=== PATIENT | female | born 1955 | race Caucasian/White ===

== ENCOUNTER 2017-10-27 07:21 | Outpatient (CLI) | payer OTHER ==
[~2017-10-27 07:21] MED LIST: DOCU100C40 PO; LACT10SO32 PO; MAG30ORA PO; METO5VIA IV; POLY17PO2 PO; SUMA6VIA19 SQ
[2017-10-27 07:51] LABS: BASOPHILS % (AUTO) 0.6 % (0-1); EOSINOPHILS # (AUTO) 0.1 X10'3 (0-0.9); EOSINOPHILS % (AUTO) 2.1 % (0-6); HEMATOCRIT 45.1 % (35.0-45.0); HEMOGLOBIN 15.5 g/dl (12.0-16.0); LYMPHOCYTES # (AUTO) 1.6 X10'3 (1.1-4.8); LYMPHOCYTES % (AUTO) 27.2 % (21-51); MEAN CORPUSCULAR HGB CONC 34.3 % (33.0-36.5); MEAN CORPUSCULAR VOLUME 90.5 FL (78-98); MONOCYTES # (AUTO) 0.6 X10'3 (0-0.9); MONOCYTES % (AUTO) 9.4 % (2-12); NEUTROPHILS # (AUTO) 3.7 X10'3 (1.8-7.7); NEUTROPHILS % (AUTO) 60.7 % (42-75); PLATELET COUNT 291 X10'3 (140-440); RED BLOOD COUNT 4.98 X10'6 (4.20-5.60); WHITE BLOOD COUNT 6.1 X10'3 (4.5-11.0)
[2017-10-27 08:19] LABS: ALANINE AMINOTRANSFERASE 17 U/L (12-78); ALBUMIN 3.9 G/DL (3.4-5.0); ALKALINE PHOSPHATASE 101 IU/L (46-116); ANION GAP 9 (8-16); ASPARTATE AMINO TRANSFERASE 14 U/L (10-37); BILIRUBIN,TOTAL 0.4 MG/DL (0.1-1.0); BLOOD UREA NITROGEN 19 MG/DL (7-18); CALCIUM 9.1 MG/DL (8.5-10.1); CHLORIDE 105 MMOL/L (99-107); CHOLESTEROL 209 MG/DL (0-200); CREATININE 0.73 MG/DL (0.40-0.90); GLUCOSE 109 MG/DL (70-104); HDL CHOLESTEROL 70 MG/DL (35-60); LDL CHOLESTEROL 122 MG/DL (50-100); POTASSIUM 3.9 MMOL/L (3.5-5.1); SODIUM 143 MMOL/L (135-145); TOTAL CARBON DIOXIDE 29.1 MMOL/L (24-32); TOTAL PROTEIN 7.8 G/DL (6.4-8.2); TRIGLYCERIDES 70 MG/DL (20-135); eGFR 81 ML/MIN
[2017-10-27 08:23] LABS: CLARITY,URINE CLOUDY (Clear); COLOR,URINE YELLOW (Yellow); GLUCOSE, URINE NEGATIVE (Neg); KETONES,URINE NEGATIVE (Neg); LEUKOCYTE ESTERASE ,URINE SMALL (Neg); NITRITES, URINE NEGATIVE (Neg); OCCULT BLOOD,URINE MODERATE (Neg); PH,URINE 7.5 (4.8-8.0); PROTEIN,URINE NEGATIVE (Neg); UROBILINOGEN,URINE 0.2 E.U/dL (0.2-1.0)
[2017-10-27 08:37] LABS: UA COLLECTION TYPE CLN CATCH MIDSTREAM
[2017-10-27 08:40] LABS: AMORPHOUS PHOSPHATES 2+; BACTERIA,URINE NONE SEEN /HPF (Neg); MUCUS STRANDS MANY /LPF (Neg); RBC,URINE 0-2 /HPF (0-2); SQUAMOUS EPITHELIAL CELL,UR FEW /LPF (FEW); WBC,URINE 0-4 /HPF (0-4)
[2017-10-27 08:41] LABS: HYALINE CASTS 0-3 /LPF (NEGATIVE)
== END 2017-10-27 23:59 | disposition home or self-care (01) ==
LOC: LAB 07:21
PROVIDERS: ATTEND Family Medicine
DX: Z00.01 Encounter for general adult medical examination with abnormal findings (principal); R79.89 Other specified abnormal findings of blood chemistry
CPT/HCPCS: 36415; 80053; 80061; 81001; 83001; 84439; 84443; 85025

== ENCOUNTER 2018-12-11 06:05 | Day surgery (SDC) | payer OTHER ==
[2018-12-08 14:37] LABS: CLARITY,URINE SLIGHTLY CLOUDY (Clear); COLOR,URINE STRAW (Yellow); GLUCOSE, URINE NEGATIVE (Neg); KETONES,URINE TRACE mg/dl (Neg); LEUKOCYTE ESTERASE ,URINE NEGATIVE (Neg); NITRITES, URINE NEGATIVE (Neg); OCCULT BLOOD,URINE SMALL (Neg); PROTEIN,URINE NEGATIVE (Neg); UROBILINOGEN,URINE 0.2 E.U/dL (0.2-1.0)
[2018-12-08 14:38] LABS: BASOPHILS # (AUTO) 0.1 X10'3 (0-0.2); BASOPHILS % (AUTO) 0.9 % (0-1); EOSINOPHILS % (AUTO) 0.6 % (0-6); LYMPHOCYTES # (AUTO) 1.8 X10'3 (1.1-4.8); LYMPHOCYTES % (AUTO) 25.7 % (21-51); MEAN CORPUSCULAR HGB CONC 33.2 g/dL (33.0-36.5); MEAN CORPUSCULAR VOLUME 93.3 FL (78-98); MEAN PLATELET VOLUME 8.2 FL (7.4-10.4); MONOCYTES # (AUTO) 0.5 X10'3 (0-0.9); MONOCYTES % (AUTO) 7.9 % (2-12); NEUTROPHILS # (AUTO) 4.4 X10'3 (1.8-7.7); NEUTROPHILS % (AUTO) 64.9 % (42-75); PRE OP HEMATOCRIT 43.3 % (35.0-45.0); PRE OP HEMOGLOBIN 14.4 g/dL (12.0-16.0); PRE OP PLATELET COUNT 272 X10'3 (140-440); RED BLOOD COUNT 4.64 X10'6 (4.20-5.60); RED CELL DISTRIBUTION WIDTH 13.4 % (11.5-14.5)
[2018-12-08 14:45] LABS: UA COLLECTION TYPE NON-SPECIFIED
[2018-12-08 14:50] LABS: BACTERIA,URINE FEW /HPF (Neg); MUCUS STRANDS MANY /LPF (Neg); SQUAMOUS EPITHELIAL CELL,UR FEW /LPF (FEW); WBC,URINE 0-4 /HPF (0-4)
[2018-12-08 14:51] LABS: ALBUMIN 3.7 G/DL (3.4-5.0); ALKALINE PHOSPHATASE 84 IU/L (46-116); BLOOD UREA NITROGEN 20 MG/DL (7-18); BUN/CREATININE RATIO 24.7 (6.6-38.0); CALCIUM 8.4 MG/DL (8.5-10.1); CHLORIDE 108 MMOL/L (99-107); CREATININE 0.81 MG/DL (0.40-0.90); PRE OP ALT 18 U/L (30-65); PRE OP ANION GAP 9 (8-16); PRE OP AST 10 U/L (10-37); PRE OP BILIRUB, TOTAL 0.4 MG/DL (0.0-1.0); PRE OP GLUCOSE 156 MG/DL (70-104); PRE OP PROTIME 10.4 SECONDS (9.0-12.0); PRE OP SODIUM 141 MMOL/L (135-145); TOTAL CARBON DIOXIDE 23.7 MMOL/L (24-32); TOTAL PROTEIN 7.3 G/DL (6.4-8.2); eGFR 71 ML/MIN
[2018-12-08 14:51] LABS: COARSE GRANULAR CAST 0-3 /LPF (NEGATIVE); HYALINE CASTS 0-3 /LPF (NEGATIVE); TRANSITIONAL EPI CELLS,URINE FEW /HPF
[2018-12-08 14:53] LABS: PRE OP POTASSIUM 2.9 MMOL/L (3.4-5.1)
[2018-12-08 16:49] LABS: HEMOGLOBIN A1C 5.7 % (4.5-6.2)
[2018-12-11] VITALS (17 sets, daily range): BP systolic 78–132; BP diastolic 44–67
[~2018-12-11] VITALS: Ht 163.8 cm; Wt 59.0 kg
[~2018-12-11 06:05] MED LIST changes: +CHOL10002 PO; -DOCU100C40 PO; +ESTR42.53 VG; +GENTAMICIN IV ONE; -LACT10SO32 PO; -MAG30ORA PO; -METO5VIA IV; +MULT-933 PO; +NORMAL SALINE IV ONE; -POLY17PO2 PO; +TOP100T PO; +clindamycin-Cleocin 900mg/D5W 50 ML IV ONE; +famotidine 20mg tablet PO ONE
[2018-12-11] MEDS ORDERED: LIDOcaine 1% (10mg/ml) 2ml vial ONE (06:26)
[2018-12-11] MEDS: ringers solution, lacted 1,000 ML IV SCH ×2 (06:31→21:10)
[2018-12-11] MEDS ORDERED: clindamycin phosphate 40gm vag cream ONE (06:37)
[2018-12-11] MEDS ORDERED: morphine 10mg/ml inj. ONE (06:38)
[2018-12-11] MEDS ORDERED: LIDOcaine 1% 30ml preserv. free vial ONE (06:38)
[2018-12-11] MEDS ORDERED: BUPIVAcaine/PF 2.5 mg/ml (0.25%) 30ml vial ONE (06:38)
[2018-12-11] MEDS ORDERED: vasoPRESSIN 20 units/ml inj. ONE (06:38)
[2018-12-11] MEDS ORDERED: ceFAZolin 1000mg inj ONE (06:38)
[2018-12-11] MEDS ORDERED: midazolam 2 mg/2 ml injection ONE ×2 (07:47→08:02)
[2018-12-11] MEDS ORDERED: rocuronium 10mg/ml inj IV ONE (08:02)
[2018-12-11] MEDS ORDERED: fentaNYL /PF 50mcg/ml 5ml ampule ONE (08:02)
[2018-12-11] MEDS ORDERED: propofol inj 20 ML IV ONE (08:02)
[2018-12-11] MEDS ORDERED: ringers solution, lacted 1,000 ML IV SCH ×2 (08:07→11:00)
[2018-12-11] MEDS ORDERED: meperidine/PF 25mg/ml syringe IV PRN ×3 (08:10)
[2018-12-11] MEDS ORDERED: ondansetron/PF 4mg/2ml inj IV PRN ×2 (08:10→11:00)
[2018-12-11] MEDS ORDERED: proCHLORperazine 10 MG/2 ml inj IV PRN (08:10)
[2018-12-11] MEDS ORDERED: morphine 4 MG/ML inj SYRINge IV PRN ×2 (08:10)
[2018-12-11] MEDS ORDERED: sevoflurane 250ml liquid IH ONE (08:11)
[2018-12-11] MEDS ORDERED: naloxone 0.4 mg/ml inj IV PRN (11:00)
[2018-12-11] MEDS ORDERED: temazepam 15mg capsule PO PRN (11:00)
[2018-12-11] MEDS ORDERED: CADD PCA waste documentation MC PRN (11:00)
[2018-12-11] MEDS ORDERED: HYDROcodone/acetaminophen 5mg/325mg tablet PO PRN ×2 (11:00)
[2018-12-11] MEDS ORDERED: diphenhydrAMINE 50 mg/ml inj IV PRN (11:00)
[2018-12-11] MEDS ORDERED: normal saline 500ml IV soln 500 ML IV PRN (11:00)
[2018-12-11] MEDS ORDERED: magnesium hydroxide 30ml (MOM) UD suspension PO PRN (11:00)
[2018-12-11] MEDS ORDERED: fluoroscein sod 10% (100mg/ml) 5ml vial ONE (11:06)
[2018-12-11] MEDS ORDERED: dexamethasone sod phosphate 4mg/ml inj. ONE (11:07)
[2018-12-11] MEDS ORDERED: glycopyrrolate 0.2mg/ml inj ONE (11:07)
[2018-12-11] MEDS ORDERED: ondansetron/PF 4mg/2ml inj ONE (11:07)
[2018-12-11] MEDS ORDERED: acetaminophen 1,000mg/100ml IV 100 ML IV ONE (11:07)
[2018-12-11] MEDS ORDERED: neostigmine methylsulfate 1 MG/ML 10ml vial ONE (11:07)
[2018-12-11] MEDS: HYDROmorphone/NS 1 mg/ml CADD 50 ML IV SCH ×7 (11:33→23:00)
--- NOTE | 2018-12-11 12:00 | NUR ---
Report received from [employer] SUPPORT FITTERBrandi.
--- NOTE | 2018-12-11 12:15 | NUR ---
Discharge criteria met, report to receiving floor. Transferred to room in stable condition.
[2018-12-11] MEDS: ketorolac trometh. 30mg/ml inj. IV PRN ×2 (13:16→21:08)
--- NOTE | 2018-12-11 18:45 | NUR ---
Problems reprioritized. Patient report given, questions answered & plan of care reviewed with PAYTON Ross.
[2018-12-12] VITALS: BP 108/62
[2018-12-12] MEDS: HYDROmorphone/NS 1 mg/ml CADD 50 ML IV SCH ×6 (01:00→11:00)
[2018-12-12] MEDS ORDERED: SUMAtriptan 25 MG tablet PO PRN (01:45)
[2018-12-12 04:00] VITALS: BP 128/58
[2018-12-12 04:37] LABS: BASOPHILS % (AUTO) 0.4 % (0-1); EOSINOPHILS % (AUTO) 0.2 % (0-6); HEMATOCRIT 38.7 % (35.0-45.0); HEMOGLOBIN 12.7 g/dl (12.0-16.0); LYMPHOCYTES # (AUTO) 2.2 X10'3 (1.1-4.8); LYMPHOCYTES % (AUTO) 19.9 % (21-51); MEAN PLATELET VOLUME 8.3 FL (7.4-10.4); MONOCYTES % (AUTO) 8.9 % (2-12); NEUTROPHILS # (AUTO) 7.9 X10'3 (1.8-7.7); NEUTROPHILS % (AUTO) 70.6 % (42-75); PLATELET COUNT 243 X10'3 (140-440); RED BLOOD COUNT 4.11 X10'6 (4.20-5.60); RED CELL DISTRIBUTION WIDTH 13.3 % (11.5-14.5); WHITE BLOOD COUNT 11.2 X10'3 (4.5-11.0)
[2018-12-12] MEDS ORDERED: metoclopramide 5 mg/ml inj IV PRN (04:40)
--- NOTE | 2018-12-12 06:15 | NUR ---
Problems reprioritized. Patient report given, questions answered & plan of care reviewed with Diana CAIN.
--- NOTE | 2018-12-12 06:51 | NUR ---
Patient in room TRAN 341. I have received report from Cody CAIN and had the opportunity to ask questions and assume patient care.
[2018-12-12 07:00] VITALS: BP 121/69
[2018-12-12] MEDS ORDERED: acetaminophen 1,000mg/100ml IV 100 ML IV ONE (08:30)
--- NOTE | 2018-12-12 09:16 | NUR ---
patient sen by Dr Kc, acetaminophen drip ordered and administered for chronic headache. will continue to monitor.
[2018-12-12 11:00] VITALS: BP 131/65
--- NOTE | 2018-12-12 17:32 | NUR ---
patient stated that the tylenol helped her headache. Ambulating frequently with . Voiding often. Seen by Dr Morrow is for discharge. Dc home in stable condition with 1700hrs.
== END 2018-12-12 17:25 | disposition home or self-care (01) ==
LOC: PAS 06:05 → SUR 3N 11:00 → PAS 12-12 17:25
PROVIDERS: ATTEND Specialist
DX: N81.4 Uterovaginal prolapse, unspecified (principal); N36.42 Intrinsic sphincter deficiency (ISD); N73.6 Female pelvic peritoneal adhesions (postinfective); D25.9 Leiomyoma of uterus, unspecified; N39.3 Stress incontinence (female) (male); G43.909 Migraine, unspecified, not intractable, without status migrainosus; M19.90 Unspecified osteoarthritis, unspecified site; Z98.890 Other specified postprocedural states; Z79.899 Other long term (current) drug therapy; Z72.89 Other problems related to lifestyle; Z88.0 Allergy status to penicillin; Z90.49 Acquired absence of other specified parts of digestive tract
CPT/HCPCS: 36415; 57240; 57283; 57288; 58552; 80053; 81001; 82948; 83036; 84132; 85025; 85610; 85730; 86885; 86900; 86901; C1771; J0131; J0690; J1100; J1170; J1580; J1885; J2001; J2250; J2270; J2405; J2704; J2710; J2765; J3010; J3490; J7120; A4315; A4344; A4355; A6250; A7000; G0378

== ENCOUNTER 2019-06-19 05:08 | Outpatient (CLI) | payer OTHER ==
[~2019-06-19 05:08] MED LIST changes: -ESTR42.53 VG; -GENTAMICIN IV ONE; -NORMAL SALINE IV ONE; -clindamycin-Cleocin 900mg/D5W 50 ML IV ONE; -famotidine 20mg tablet PO ONE
[2019-06-19] MEDS ORDERED: iohexol 300mg/ml 100ml inj. ONE (08:56)
== END 2019-06-19 23:59 | disposition home or self-care (01) ==
LOC: 64 CT 05:08
PROVIDERS: ATTEND Obstetrics & Gynecology
DX: K44.9 Diaphragmatic hernia without obstruction or gangrene (principal); K57.90 Diverticulosis of intestine, part unspecified, without perforation or abscess without bleeding; N28.1 Cyst of kidney, acquired
CPT/HCPCS: 74177; Q9967

== ENCOUNTER 2020-01-31 11:33 | Day surgery (SDC) | payer BC ==
[2020-01-07 10:58] LABS: BASOPHILS % (AUTO) 0.7 % (0-1); EOSINOPHILS # (AUTO) 0.1 X10'3 (0-0.9); EOSINOPHILS % (AUTO) 1.1 % (0-6); LYMPHOCYTES # (AUTO) 1.4 X10'3 (1.1-4.8); LYMPHOCYTES % (AUTO) 29.4 % (21-51); MEAN CORPUSCULAR HEMOGLOBIN 31.3 PG (27.0-31.0); MEAN CORPUSCULAR HGB CONC 33.3 g/dL (33.0-36.5); MEAN CORPUSCULAR VOLUME 93.9 FL (78-98); MEAN PLATELET VOLUME 8.6 FL (7.4-10.4); MONOCYTES # (AUTO) 0.5 X10'3 (0-0.9); NEUTROPHILS # (AUTO) 2.9 X10'3 (1.8-7.7); NEUTROPHILS % (AUTO) 58.8 % (42-75); PRE OP HEMATOCRIT 42.9 % (35.0-45.0); PRE OP HEMOGLOBIN 14.3 g/dL (12.0-16.0); PRE OP PLATELET COUNT 251 X10'3 (140-440); RED BLOOD COUNT 4.57 X10'6 (4.20-5.60); RED CELL DISTRIBUTION WIDTH 13.2 % (11.5-14.5)
[2020-01-07 11:07] LABS: HCG SERUM QL NEGATIVE
[2020-01-07 11:12] LABS: ALBUMIN 3.7 G/DL (3.4-5.0); ALBUMIN/GLOBULIN RATIO 1.1 (1.1-1.5); ALKALINE PHOSPHATASE 79 IU/L (46-116); BLOOD UREA NITROGEN 25 MG/DL (7-18); BUN/CREATININE RATIO 27.2 (6.6-38.0); CALCIUM 8.8 MG/DL (8.5-10.1); CHLORIDE 108 MMOL/L (99-107); CREATININE 0.92 MG/DL (0.40-0.90); PRE OP ALT 16 U/L (30-65); PRE OP ANION GAP 8 (8-16); PRE OP AST 12 U/L (10-37); PRE OP BILIRUB, TOTAL 0.3 MG/DL (0.0-1.0); PRE OP GLUCOSE 94 MG/DL (70-104); PRE OP POTASSIUM 3.7 MMOL/L (3.4-5.1); PRE OP PROTIME 10.3 SECONDS (9.0-12.0); PRE OP SODIUM 142 MMOL/L (135-145); TOTAL CARBON DIOXIDE 26.5 MMOL/L (24-32); TOTAL PROTEIN 7.2 G/DL (6.4-8.2); eGFR 61 ML/MIN
[2020-01-07 11:12] LABS: CLARITY,URINE TURBID (Clear); COLOR,URINE STRAW (Yellow); GLUCOSE, URINE NEGATIVE (Neg); KETONES,URINE NEGATIVE (Neg); LEUKOCYTE ESTERASE ,URINE NEGATIVE (Neg); NITRITES, URINE NEGATIVE (Neg); OCCULT BLOOD,URINE TRACE-INTACT (Neg); PH,URINE 7.5 (4.8-8.0); PROTEIN,URINE NEGATIVE (Neg); UROBILINOGEN,URINE 0.2 E.U/dL (0.2-1.0)
[2020-01-07 11:14] LABS: UA COLLECTION TYPE CLN CATCH MIDSTREAM
[2020-01-07 11:18] LABS: SQUAMOUS EPITHELIAL CELL,UR MANY /LPF (FEW)
[2020-01-07 11:19] LABS: AMORPHOUS PHOSPHATES 4+
[2020-01-07 11:21] LABS: MUCUS STRANDS MANY /LPF (Neg); TRANSITIONAL EPI CELLS,URINE FEW /HPF
[2020-01-07 11:22] LABS: BACTERIA,URINE 4+ /HPF (Neg); RBC,URINE 0-2 /HPF (0-2); WBC,URINE 0-4 /HPF (0-4)
[2020-01-24 10:12] LABS: BASOPHILS % (AUTO) 0.9 % (0-1); EOSINOPHILS # (AUTO) 0.1 X10'3 (0-0.9); EOSINOPHILS % (AUTO) 1.7 % (0-6); LYMPHOCYTES # (AUTO) 1.5 X10'3 (1.1-4.8); MEAN CORPUSCULAR HEMOGLOBIN 31.5 PG (27.0-31.0); MEAN CORPUSCULAR HGB CONC 33.8 g/dL (33.0-36.5); MEAN CORPUSCULAR VOLUME 93.3 FL (78-98); MEAN PLATELET VOLUME 8.6 FL (7.4-10.4); MONOCYTES # (AUTO) 0.5 X10'3 (0-0.9); MONOCYTES % (AUTO) 10.3 % (2-12); NEUTROPHILS # (AUTO) 2.9 X10'3 (1.8-7.7); NEUTROPHILS % (AUTO) 57.1 % (42-75); PRE OP HEMATOCRIT 43.6 % (35.0-45.0); PRE OP HEMOGLOBIN 14.7 g/dL (12.0-16.0); PRE OP PLATELET COUNT 244 X10'3 (140-440); RED BLOOD COUNT 4.68 X10'6 (4.20-5.60); RED CELL DISTRIBUTION WIDTH 13.1 % (11.5-14.5)
[2020-01-24 10:23] LABS: PRE OP PROTIME 10.1 SECONDS (9.0-12.0)
[2020-01-24 10:31] LABS: ALBUMIN 3.7 G/DL (3.4-5.0); ALBUMIN/GLOBULIN RATIO 1.1 (1.1-1.5); ALKALINE PHOSPHATASE 91 IU/L (46-116); BLOOD UREA NITROGEN 20 MG/DL (7-18); BUN/CREATININE RATIO 24.7 (6.6-38.0); CALCIUM 8.6 MG/DL (8.5-10.1); CHLORIDE 108 MMOL/L (99-107); CREATININE 0.81 MG/DL (0.40-0.90); PRE OP ALT 15 U/L (30-65); PRE OP ANION GAP 9 (8-16); PRE OP AST 12 U/L (10-37); PRE OP BILIRUB, TOTAL 0.3 MG/DL (0.0-1.0); PRE OP GLUCOSE 92 MG/DL (70-104); PRE OP POTASSIUM 3.8 MMOL/L (3.4-5.1); PRE OP SODIUM 142 MMOL/L (135-145); TOTAL CARBON DIOXIDE 24.8 MMOL/L (24-32); TOTAL PROTEIN 7.1 G/DL (6.4-8.2); eGFR 71 ML/MIN
[2020-01-31] VITALS (8 sets, daily range): BP systolic 107–131; BP diastolic 63–77
[~2020-01-31] VITALS: Ht 162.6 cm; Wt 62.1 kg
[~2020-01-31 11:33] MED LIST changes: +CALC500T63 PO; +GENTAMICIN IV ONE; +NORMAL SALINE IV ONE; +VANCOMYCIN INJ 1000 MG in NORMAL SALINE 250ml IV.SOLN IV ONE; +clindamycin-Cleocin 900mg/D5W 50 ML IV ONE; +famotidine 20mg tablet PO ONE; +gentamicin inj 300 MG in normal saline 100ml IV soln 92.5 ML IV ONE; +ringers solution, lacted 1,000 ML IV SCH
[2020-01-31] MEDS ORDERED: midazolam 2 mg/2 ml injection ONE (13:29)
[2020-01-31] MEDS ORDERED: BUPIVAcaine/PF 2.5 mg/ml (0.25%) 30ml vial ONE ×2 (13:29→13:30)
[2020-01-31] MEDS ORDERED: clindamycin phosphate 40gm vag cream ONE (13:29)
[2020-01-31] MEDS ORDERED: glycopyrrolate 0.2mg/ml inj ONE (13:42)
[2020-01-31] MEDS ORDERED: acetaminophen 1000 MG/100ml vial IV ONE (13:42)
[2020-01-31] MEDS ORDERED: neostigmine methylsulfate 1 MG/ML 10ml vial ONE (13:42)
[2020-01-31] MEDS ORDERED: sevoflurane 250ml liquid IH ONE (13:42)
[2020-01-31] MEDS ORDERED: propofol inj 20 ML IV ONE (13:50)
[2020-01-31] MEDS ORDERED: rocuronium 10mg/ml inj IV ONE (13:50)
[2020-01-31] MEDS ORDERED: fentaNYL/PF 50MCG/1 ML 2ML syringe ONE (13:50)
[2020-01-31] MEDS ORDERED: ringers solution, lacted 1,000 ML IV SCH (14:47)
[2020-01-31] MEDS ORDERED: morphine 2 MG/ML inj. syringe IV PRN (14:50)
[2020-01-31] MEDS ORDERED: proCHLORperazine 10 MG/2 ml inj IV PRN (14:50)
[2020-01-31] MEDS ORDERED: morphine 4 MG/ML inj SYRINge IV PRN (14:50)
[2020-01-31] MEDS ORDERED: meperidine/PF 25mg/ml syringe IV PRN ×3 (14:50)
[2020-01-31] MEDS ORDERED: ondansetron/PF 4mg/2ml inj IV PRN (14:50)
[2020-01-31] MEDS ORDERED: ondansetron/PF 4mg/2ml inj ONE (15:12)
[2020-01-31] MEDS ORDERED: dexamethasone sod phosphate 4mg/ml inj. ONE (15:13)
--- NOTE | 2020-01-31 15:34 | NUR ---
Received from OR via , accompanied by Anesthesiologist DR FULLER and report given by Anesthesiolgist. AWAKENS TO VOICE. VITALS STABLE. DRESSINGS DI. MOISE PAIN. ABD SOFT.
--- NOTE | 2020-01-31 16:44 | NUR ---
AWAKE AND ORIENTED. VITALS STABLE. DRESSING DI. MOISE PAIN. HOME WITH HER SPOUSE AT THIS TIME.
== END 2020-01-31 16:44 | disposition home or self-care (01) ==
LOC: PRE-OP 11:33
PROVIDERS: ATTEND Obstetrics & Gynecology
DX: N81.10 Cystocele, unspecified (principal); N73.6 Female pelvic peritoneal adhesions (postinfective); G43.909 Migraine, unspecified, not intractable, without status migrainosus; Z90.710 Acquired absence of both cervix and uterus; Z90.49 Acquired absence of other specified parts of digestive tract; Z20.828 Contact with and (suspected) exposure to other viral communicable diseases; Z79.899 Other long term (current) drug therapy; Z79.01 Long term (current) use of anticoagulants; Z88.0 Allergy status to penicillin; Z98.890 Other specified postprocedural states
CPT/HCPCS: 36415; 57240; 80053; 81001; 82948; 84703; 85025; 85610; 85730; 86885; 86900; 86901; 87635; 93005; C1758; J0131; J1100; J1580; J2250; J2405; J2704; J2710; J3010; J3370; J3490; J7120; U0003; A4618; A7000

== ENCOUNTER 2020-04-17 07:12 | Emergency (ER) | payer BC, MEDICARE ==
[~2020-04-17] VITALS: Ht 162.6 cm; Wt 61.0 kg
[~2020-04-17 07:12] MED LIST changes: -GENTAMICIN IV ONE; -NORMAL SALINE IV ONE; -VANCOMYCIN INJ 1000 MG in NORMAL SALINE 250ml IV.SOLN IV ONE; -clindamycin-Cleocin 900mg/D5W 50 ML IV ONE; -famotidine 20mg tablet PO ONE; -gentamicin inj 300 MG in normal saline 100ml IV soln 92.5 ML IV ONE; -ringers solution, lacted 1,000 ML IV SCH
[2020-04-17] MEDS ORDERED: ondansetron 4mg rapidly disintigrating tab PO ONE (07:30)
[2020-04-17] MEDS ORDERED: ketorolac trometh. 30mg/ml inj. IV ONE (07:30)
[2020-04-17] MEDS ORDERED: aspirin 325mg tablet PO ONE (07:30)
[2020-04-17] MEDS ORDERED: normal saline 1000ml 1,000 ML IV ONE (07:30)
[2020-04-17] MEDS ORDERED: iohexol 350MG/ML 100ml bottle IV ONE (08:03)
[2020-04-17] MEDS ORDERED: methylPREDNISolone sod succ 125mg/2ml vial IV ONE (08:10)
[2020-04-17] MEDS ORDERED: diphenhydrAMINE 50 mg/ml inj IV ONE (08:10)
[2020-04-17 08:20] LABS: BASOPHILS % (AUTO) 0.4 % (0-1); EOSINOPHILS # (AUTO) 0.1 X10'3 (0-0.9); EOSINOPHILS % (AUTO) 1.2 % (0-6); HEMATOCRIT 42.4 % (35.0-45.0); HEMOGLOBIN 14.2 g/dl (12.0-16.0); LYMPHOCYTES # (AUTO) 1.1 X10'3 (1.1-4.8); LYMPHOCYTES % (AUTO) 11.3 % (21-51); MEAN CORPUSCULAR HEMOGLOBIN 30.9 PG (27.0-31.0); MEAN CORPUSCULAR HGB CONC 33.4 g/dL (33.0-36.5); MEAN CORPUSCULAR VOLUME 92.5 FL (78-98); MEAN PLATELET VOLUME 7.6 FL (7.4-10.4); MONOCYTES # (AUTO) 0.8 X10'3 (0-0.9); MONOCYTES % (AUTO) 8.6 % (2-12); NEUTROPHILS # (AUTO) 7.4 X10'3 (1.8-7.7); NEUTROPHILS % (AUTO) 78.5 % (42-75); PLATELET COUNT 319 X10'3 (140-440); RED BLOOD COUNT 4.58 X10'6 (4.20-5.60); RED CELL DISTRIBUTION WIDTH 13.6 % (11.5-14.5); WHITE BLOOD COUNT 9.4 X10'3 (4.5-11.0)
[2020-04-17 08:44] LABS: ALANINE AMINOTRANSFERASE 18 U/L (12-78); ALBUMIN 3.4 G/DL (3.4-5.0); ALBUMIN/GLOBULIN RATIO 0.8 (1.1-1.5); ALKALINE PHOSPHATASE 101 IU/L (46-116); ANION GAP 9 (8-16); ASPARTATE AMINO TRANSFERASE 13 U/L (10-37); BILIRUBIN,TOTAL 0.4 MG/DL (0.1-1.0); BLOOD UREA NITROGEN 20 MG/DL (7-18); BUN/CREATININE RATIO 25.6 (6.6-38.0); CALCIUM 9.1 MG/DL (8.5-10.1); CHLORIDE 110 MMOL/L (99-107); CREATININE 0.78 MG/DL (0.40-0.90); GLUCOSE 119 MG/DL (70-104); POTASSIUM 3.7 MMOL/L (3.5-5.1); SODIUM 145 MMOL/L (135-145); TOTAL CARBON DIOXIDE 26.3 MMOL/L (24-32); TOTAL PROTEIN 7.8 G/DL (6.4-8.2); eGFR 74 ML/MIN
[2020-04-17 08:46] LABS: MAGNESIUM 2.2 MG/DL (1.5-2.4)
[2020-04-17 10:09] VITALS: BP 132/72
== END 2020-04-17 10:07 | disposition home or self-care (01) ==
LOC: ER 07:13 → EEVIPCON 07:13 → ER 10:07
DX: R07.89 Other chest pain (principal); R06.02 Shortness of breath; R11.0 Nausea; R50.9 Fever, unspecified; G43.909 Migraine, unspecified, not intractable, without status migrainosus; Z87.442 Personal history of urinary calculi; Z90.89 Acquired absence of other organs; Z98.890 Other specified postprocedural states; Z72.89 Other problems related to lifestyle; Z88.0 Allergy status to penicillin; Z88.8 Allergy status to other drugs, medicaments and biological substances; Z91.013 Allergy to seafood; Z79.899 Other long term (current) drug therapy
CPT/HCPCS: 36415; 71045; 71275; 80053; 83735; 83880; 84484; 85025; 93005; 96361; 96374; 96375; 99285; J1200; J1885; J2930; J7030; Q9967

== ENCOUNTER 2021-07-28 10:19 | Outpatient (CLI) | payer BC, MEDICARE ==
[~2021-07-28 10:19] MED LIST changes: +SUMA6VIA17 SQ; -SUMA6VIA19 SQ
[2021-07-28 13:37] LABS: BASOPHILS # (AUTO) 0.1 X10'3 (0-0.2); BASOPHILS % (AUTO) 0.9 % (0-1); EOSINOPHILS # (AUTO) 0.1 X10'3 (0-0.9); HEMATOCRIT 41.9 % (35.0-45.0); LYMPHOCYTES # (AUTO) 2.1 X10'3 (1.1-4.8); LYMPHOCYTES % (AUTO) 36.2 % (21-51); MEAN CORPUSCULAR HGB CONC 33.4 g/dL (33.0-36.5); MEAN CORPUSCULAR VOLUME 92.7 FL (78-98); MEAN PLATELET VOLUME 7.8 FL (7.4-10.4); MONOCYTES # (AUTO) 0.6 X10'3 (0-0.9); MONOCYTES % (AUTO) 10.7 % (2-12); NEUTROPHILS # (AUTO) 2.9 X10'3 (1.8-7.7); NEUTROPHILS % (AUTO) 50.2 % (42-75); PLATELET COUNT 279 X10'3 (140-440); RED BLOOD COUNT 4.52 X10'6 (4.20-5.60); RED CELL DISTRIBUTION WIDTH 12.9 % (11.5-14.5); WHITE BLOOD COUNT 5.7 X10'3 (4.5-11.0)
[2021-07-28 14:22] LABS: ALANINE AMINOTRANSFERASE 26 U/L (12-78); ALBUMIN 3.6 G/DL (3.4-5.0); ALBUMIN/GLOBULIN RATIO 1.2 (1.1-1.5); ALKALINE PHOSPHATASE 92 IU/L (46-116); ANION GAP 10 (8-16); ASPARTATE AMINO TRANSFERASE 21 U/L (10-37); BILIRUBIN,TOTAL 0.2 MG/DL (0.1-1.0); BLOOD UREA NITROGEN 22 MG/DL (7-18); BUN/CREATININE RATIO 28.9 (6.6-38.0); CALCIUM 8.4 MG/DL (8.5-10.1); CHLORIDE 102 MMOL/L (99-107); CREATININE 0.76 MG/DL (0.40-0.90); GLUCOSE 112 MG/DL (70-104); POTASSIUM 3.7 MMOL/L (3.5-5.1); SODIUM 141 MMOL/L (135-145); TOTAL CARBON DIOXIDE 29.3 MMOL/L (24-32); TOTAL PROTEIN 6.7 G/DL (6.4-8.2); eGFR 76 ML/MIN
== END 2021-07-28 23:59 | disposition home or self-care (01) ==
LOC: LAB 10:19
PROVIDERS: ATTEND Physician Assistant
DX: G43.909 Migraine, unspecified, not intractable, without status migrainosus (principal)
CPT/HCPCS: 36415; 80053; 84439; 84443; 85025

== ENCOUNTER 2021-10-15 12:38 | Inpatient (IN) | payer BC, MEDICARE ==
[~2021-10-15] VITALS: Ht 162.6 cm; Wt 66.0 kg
[2021-10-15] MEDS ORDERED: nitroGLYCERIN 0.4mg SUBLingual tab SL PRN ×2 (13:00→18:05)
[2021-10-15] MEDS ORDERED: aspirin 81mg tab.chew PO ONE (13:00)
[2021-10-15 13:12] LABS: BASOPHILS % (AUTO) 0.7 % (0-1); EOSINOPHILS # (AUTO) 0.2 X10'3 (0-0.9); EOSINOPHILS % (AUTO) 2.9 % (0-6); HEMATOCRIT 43.2 % (35.0-45.0); HEMOGLOBIN 14.3 g/dl (12.0-16.0); LYMPHOCYTES # (AUTO) 2.2 X10'3 (1.1-4.8); LYMPHOCYTES % (AUTO) 39.4 % (21-51); MEAN CORPUSCULAR HEMOGLOBIN 30.2 PG (27.0-31.0); MEAN CORPUSCULAR HGB CONC 33.2 g/dL (33.0-36.5); MEAN PLATELET VOLUME 8.1 FL (7.4-10.4); MONOCYTES # (AUTO) 0.5 X10'3 (0-0.9); MONOCYTES % (AUTO) 9.6 % (2-12); NEUTROPHILS # (AUTO) 2.6 X10'3 (1.8-7.7); NEUTROPHILS % (AUTO) 47.4 % (42-75); PLATELET COUNT 270 X10'3 (140-440); RED BLOOD COUNT 4.75 X10'6 (4.20-5.60); RED CELL DISTRIBUTION WIDTH 12.7 % (11.5-14.5); WHITE BLOOD COUNT 5.6 X10'3 (4.5-11.0)
[2021-10-15 13:19] LABS: D-DIMER 0.35 MG/L FEU (0-0.50)
[2021-10-15 13:22] LABS: ALANINE AMINOTRANSFERASE 20 U/L (12-78); ALBUMIN 3.6 G/DL (3.4-5.0); ALKALINE PHOSPHATASE 108 IU/L (46-116); ANION GAP 3 (8-16); ASPARTATE AMINO TRANSFERASE 15 U/L (10-37); BILIRUBIN,TOTAL 0.2 MG/DL (0.1-1.0); BLOOD UREA NITROGEN 17 MG/DL (7-18); BUN/CREATININE RATIO 23.6 (6.6-38.0); CALCIUM 8.4 MG/DL (8.5-10.1); CHLORIDE 106 MMOL/L (99-107); CREATININE 0.72 MG/DL (0.40-0.90); GLUCOSE 154 MG/DL (70-104); SODIUM 140 MMOL/L (135-145); TOTAL CARBON DIOXIDE 31.3 MMOL/L (24-32); TOTAL PROTEIN 7.2 G/DL (6.4-8.2); eGFR 81 ML/MIN
--- NOTE | 2021-10-15 13:58 | NUR ---
pt reports feeling "funny" after taking 1 nitro.
[2021-10-15] MEDS ORDERED: [UNRECOGNIZED DRUG - CODE] PO (14:00)
[2021-10-15] MEDS ORDERED: mag hydrox/Alum hydrox/simeth 30ml oral suspension PO ONE (14:15)
[2021-10-15] MEDS ORDERED: sucralfate 1 gm tablet PO ONE (14:15)
[2021-10-15] MEDS ORDERED: LIDOcaine Viscous 15ml cup MM ONE (14:15)
[2021-10-15] MEDS ORDERED: metoprolol tartrate 1mg/ml inj IV ONE (15:35)
[2021-10-15] MEDS ORDERED: heparin 10,000 units/1 ML INJ IV ONE (15:45)
[2021-10-15] MEDS ORDERED: LORazepam 2 mg/ml vial IV ONE (15:50)
[2021-10-15] MEDS ORDERED: iohexol 350 MG/1 ML 200ml bottle ONE (16:14)
[2021-10-15] MEDS ORDERED: midazolam 1 mg/ML 2ml injection ONE (16:14)
[2021-10-15] MEDS ORDERED: fentaNYL/PF 50MCG/1 ML 2ML syringe ONE (16:14)
[2021-10-15] MEDS ORDERED: LIDOCAINE 1% w/preservative (10 MG/ML) inj. 10mL VIAL ONE (16:14)
[2021-10-15] MEDS ORDERED: verapamil 2.5 mg/ml inj IV ONE (16:14)
[2021-10-15] MEDS ORDERED: heparin 1,000unit/ml 10ml vial 10 ML ONE (16:14)
[2021-10-15] MEDS ORDERED: nitroGLYCERIN-Tridil 50MG/D5W 250 ML IV ONE (16:14)
[2021-10-15] MEDS ORDERED: acetaminophen 325mg tablet PO PRN ×2 (16:15)
[2021-10-15] MEDS ORDERED: magnesium 2GM in 50ml NS 50 ML IV PRN (16:15)
[2021-10-15] MEDS ORDERED: HYDROcodone/acetaminophen 10/325mg tab PO PRN ×2 (16:15→18:05)
[2021-10-15] MEDS ORDERED: ondansetron/PF 4mg/2ml inj IV PRN ×2 (16:15→18:05)
[2021-10-15] MEDS ORDERED: bisacodyl 10mg suppository rectal RC PRN (16:15)
[2021-10-15] MEDS ORDERED: diphenhydrAMINE 25mg capsule PO PRN (16:15)
[2021-10-15] MEDS ORDERED: magnesium 4gm in 100ml NS 100 ML IV PRN (16:15)
[2021-10-15] MEDS ORDERED: mag hydrox/Alum hydrox/simeth 30ml oral suspension PO PRN (16:15)
[2021-10-15] MEDS ORDERED: magnesium Cl slow-release 64mg tablet PO PRN (16:15)
[2021-10-15] MEDS ORDERED: magnesium hydroxide 30ml (MOM) UD suspension PO PRN (16:15)
[2021-10-15] MEDS ORDERED: morphine 2 MG/ML inj. syringe IV PRN ×2 (16:15)
[2021-10-15] MEDS ORDERED: methylPREDNISolone sod succ 125mg/2ml vial IV ONE (16:15)
[2021-10-15] MEDS ORDERED: diphenhydrAMINE 50 mg/ml inj IV ONE (16:15)
[2021-10-15] MEDS ORDERED: potassium CL 10mEq/100ml bag 100 ML IV PRN (16:15)
[2021-10-15] MEDS ORDERED: POTASSIUM BICARB 20meq eff tab 20 MEQ TABLET.EFF PO PRN ×2 (16:15)
[2021-10-15] MEDS ORDERED: HYDROcodone/acetaminophen 5mg/325mg tablet PO PRN ×2 (16:15→18:05)
[2021-10-15] MEDS: heparin 25,000 UNIT/250ml bag 250 ML IV SCH (16:27)
[2021-10-15 16:37] LABS: APTT 27 SECONDS (22-32)
[2021-10-15] MEDS: normal saline 1000ml 1,000 ML IV SCH (16:38)
[2021-10-15 17:27] LABS: HEMOGLOBIN A1C 5.7 % (4.5-6.2)
--- NOTE | 2021-10-15 18:00 | NUR ---
Pt arrived to the unit. Dr Ontiveros and Dr Ontiveros came to bedside to discuss the plan of care. Introduced myself to the patient. The patient states that she is depressed about the current diagnosis, but states she is otherwise fine. Pt is alert, oriented, on room air. Patient was starting to eat dinner when assessed. Received the hard copy orders and faxed medications to pharmacy and placed post cath orders in.
--- NOTE | 2021-10-15 18:00 | NUR ---
Patient in room PCU 3021. I have received report from Edgardo CAIN and had the opportunity to ask questions and assume patient care.
[2021-10-15] MEDS ORDERED: proCHLORperazine 10 MG/2 ml inj IV PRN (18:05)
[2021-10-15] MEDS ORDERED: OXAZEpam 15mg capsule PO PRN (18:05)
--- NOTE | 2021-10-15 18:07 | NUR ---
hep gtt restarted at 700 units/hr per order. Double verification with 2 nurses. AM, RN and myself
--- NOTE | 2021-10-15 18:30 | NUR ---
Dr Rehman at bedside. Order to give for Ativan 1mg IV Q 6Hr PRN for anxiety.
--- NOTE | 2021-10-15 18:35 | NUR ---
Problems reprioritized. Patient report given, questions answered & plan of care reviewed with Viola CAIN.
[2021-10-15] MEDS: K and/or MAG REPLACEMENT MC SCH (20:00)
[2021-10-15] MEDS ORDERED: MESSAGE TO NURSING PO ONE (20:35)
[2021-10-15] MEDS: LORazepam 2 mg/ml vial IV PRN (22:01)
[2021-10-15] MEDS: temazepam 15mg capsule PO PRN (22:01)
[2021-10-15] MEDS: carvedilol 6.25mg tablet PO SCH (22:02)
[2021-10-15] MEDS: atorvastatin 20mg tablet PO SCH (22:02)
[2021-10-15] MEDS: docusate sod 100mg capsule PO SCH (22:02)
[2021-10-16 02:00] VITALS: BP 137/65
[2021-10-16] MEDS ORDERED: heparin 10,000 units/1 ML INJ IV PRN (04:45)
[2021-10-16] MEDS ORDERED: heparin 10,000 units/1 ML INJ IV SCH (04:50)
[2021-10-16] MEDS: normal saline 1000ml 1,000 ML IV SCH ×2 (05:35→18:55)
[2021-10-16 06:17] LABS: BASOPHILS % (AUTO) 0.2 % (0-1); EOSINOPHILS % (AUTO) 0.2 % (0-6); HEMATOCRIT 42.3 % (35.0-45.0); HEMOGLOBIN 14.2 g/dl (12.0-16.0); LYMPHOCYTES # (AUTO) 1.5 X10'3 (1.1-4.8); LYMPHOCYTES % (AUTO) 19.9 % (21-51); MEAN CORPUSCULAR HEMOGLOBIN 30.5 PG (27.0-31.0); MEAN CORPUSCULAR HGB CONC 33.5 g/dL (33.0-36.5); MEAN CORPUSCULAR VOLUME 90.9 FL (78-98); MEAN PLATELET VOLUME 8.3 FL (7.4-10.4); MONOCYTES # (AUTO) 0.8 X10'3 (0-0.9); MONOCYTES % (AUTO) 10.3 % (2-12); NEUTROPHILS # (AUTO) 5.4 X10'3 (1.8-7.7); NEUTROPHILS % (AUTO) 69.4 % (42-75); PLATELET COUNT 270 X10'3 (140-440); RED BLOOD COUNT 4.65 X10'6 (4.20-5.60); RED CELL DISTRIBUTION WIDTH 13.1 % (11.5-14.5); WHITE BLOOD COUNT 7.8 X10'3 (4.5-11.0)
[2021-10-16 06:46] LABS: ALANINE AMINOTRANSFERASE 21 U/L (12-78); ALBUMIN 3.2 G/DL (3.4-5.0); ALBUMIN/GLOBULIN RATIO 0.9 (1.1-1.5); ALKALINE PHOSPHATASE 96 IU/L (46-116); ANION GAP 3 (8-16); ASPARTATE AMINO TRANSFERASE 40 U/L (10-37); BILIRUBIN,TOTAL 0.3 MG/DL (0.1-1.0); BLOOD UREA NITROGEN 20 MG/DL (7-18); BUN/CREATININE RATIO 26.3 (6.6-38.0); CALCIUM 8.7 MG/DL (8.5-10.1); CHLORIDE 107 MMOL/L (99-107); CHOL/HDL RATIO 2.9 (0.00-4.99); CHOLESTEROL 223 MG/DL (0-200); CREATININE 0.76 MG/DL (0.40-0.90); GLUCOSE 129 MG/DL (70-104); HDL CHOLESTEROL 76 MG/DL (35-60); LDL CHOLESTEROL 113 MG/DL (50-100); MAGNESIUM 2.1 MG/DL (1.5-2.4); PHOSPHORUS 4.1 MG/DL (2.3-4.5); POTASSIUM 4.1 MMOL/L (3.5-5.1); SODIUM 138 MMOL/L (135-145); TOTAL CARBON DIOXIDE 28.3 MMOL/L (24-32); TOTAL PROTEIN 6.6 G/DL (6.4-8.2); TRIGLYCERIDES 45 MG/DL (20-135); eGFR 76 ML/MIN
[2021-10-16 07:00] VITALS: BP 131/72
[2021-10-16] MEDS: K and/or MAG REPLACEMENT MC SCH ×2 (07:02→20:00)
[2021-10-16] MEDS: aspirin 81mg tab.chew PO SCH (08:13)
[2021-10-16] MEDS: atorvastatin 20mg tablet PO SCH (08:13)
[2021-10-16] MEDS: carvedilol 6.25mg tablet PO SCH (08:14)
[2021-10-16] MEDS: lisinopril 10 MG tablet PO SCH (08:15)
[2021-10-16] MEDS: docusate sod 100mg capsule PO SCH (08:16)
[2021-10-16] MEDS ORDERED: Insulin Reg/NS 100units/100mL 100 ML IV SCH (10:20)
[2021-10-16] MEDS ORDERED: dextrose 50%-water 50ml dispensing syringe IV PRN (10:20)
[2021-10-16] MEDS ORDERED: MESSAGE TO PHARMACY IJ ONE (10:20)
[2021-10-16] MEDS ORDERED: insulin glargine (Lantus) pen - multi-dose SQ PRN (10:20)
[2021-10-16 11:00] VITALS: BP 135/68
--- NOTE | 2021-10-16 11:21 | NUR ---
Pt's PTT is 77. Turned off heparin gtt for one hour then decrease per protocol, with a 2 RN verification of Jairo Tobar RN and Janet SANCHEZ RN
[2021-10-16 15:00] VITALS: BP 104/60
[2021-10-16 18:00] VITALS: BP 132/69
[2021-10-16] MEDS: sod chloride 0.9% 10ml flush syringe IV SCH (20:00)
[2021-10-16] MEDS ORDERED: heparin 10,000 units/1 ML INJ IV ONE (20:45)
[2021-10-16] MEDS: heparin 10,000 units/1 ML INJ IV PRN (20:55)
[2021-10-16] MEDS: temazepam 15mg capsule PO PRN (21:01)
[2021-10-16 22:00] VITALS: BP 97/44
[2021-10-17 02:00] VITALS: BP 109/56
[2021-10-17 06:00] VITALS: BP 112/71
--- NOTE | 2021-10-17 06:27 | NUR ---
Problems reprioritized. Patient report given, questions answered & plan of care reviewed with penny CAIN.
[2021-10-17 06:48] LABS: BASOPHILS % (AUTO) 0.7 % (0-1); EOSINOPHILS # (AUTO) 0.1 X10'3 (0-0.9); HEMATOCRIT 41.5 % (35.0-45.0); HEMOGLOBIN 13.8 g/dl (12.0-16.0); LYMPHOCYTES # (AUTO) 1.8 X10'3 (1.1-4.8); LYMPHOCYTES % (AUTO) 27.4 % (21-51); MEAN CORPUSCULAR HEMOGLOBIN 30.3 PG (27.0-31.0); MEAN CORPUSCULAR HGB CONC 33.4 g/dL (33.0-36.5); MEAN CORPUSCULAR VOLUME 90.8 FL (78-98); MONOCYTES # (AUTO) 0.7 X10'3 (0-0.9); MONOCYTES % (AUTO) 11.2 % (2-12); NEUTROPHILS # (AUTO) 3.9 X10'3 (1.8-7.7); NEUTROPHILS % (AUTO) 58.7 % (42-75); PLATELET COUNT 253 X10'3 (140-440); RED BLOOD COUNT 4.56 X10'6 (4.20-5.60); WHITE BLOOD COUNT 6.7 X10'3 (4.5-11.0)
[2021-10-17] MEDS: LORazepam 2 mg/ml vial IV PRN ×2 (07:02→15:15)
[2021-10-17 07:16] LABS: ALANINE AMINOTRANSFERASE 22 U/L (12-78); ALBUMIN 3.2 G/DL (3.4-5.0); ALBUMIN/GLOBULIN RATIO 0.9 (1.1-1.5); ALKALINE PHOSPHATASE 106 IU/L (46-116); ANION GAP 5 (8-16); ASPARTATE AMINO TRANSFERASE 38 U/L (10-37); BILIRUBIN,TOTAL 0.4 MG/DL (0.1-1.0); BLOOD UREA NITROGEN 22 MG/DL (7-18); BUN/CREATININE RATIO 28.6 (6.6-38.0); CALCIUM 8.5 MG/DL (8.5-10.1); CHLORIDE 107 MMOL/L (99-107); CREATININE 0.77 MG/DL (0.40-0.90); GLUCOSE 111 MG/DL (70-104); MAGNESIUM 1.8 MG/DL (1.5-2.4); PHOSPHORUS 4.4 MG/DL (2.3-4.5); SODIUM 140 MMOL/L (135-145); TOTAL CARBON DIOXIDE 28.3 MMOL/L (24-32); TOTAL PROTEIN 6.6 G/DL (6.4-8.2); eGFR 75 ML/MIN
[2021-10-17] MEDS ORDERED: MESSAGE TO NURSING PO ONE ×3 (08:00)
[2021-10-17] MEDS ORDERED: MESSAGE TO PHARMACY IJ ONE (08:00)
[2021-10-17] MEDS: docusate sod 100mg capsule PO SCH ×2 (08:00→20:00)
[2021-10-17] MEDS: heparin 25,000 UNIT/250ml bag 250 ML IV SCH ×2 (08:02→10:19)
[2021-10-17] MEDS: heparin 10,000 units/1 ML INJ IV PRN ×2 (08:06→21:47)
[2021-10-17] MEDS: normal saline 1000ml 1,000 ML IV SCH (08:15)
[2021-10-17] MEDS: aspirin 81mg tab.chew PO SCH (08:38)
[2021-10-17] MEDS: carvedilol 6.25mg tablet PO SCH (08:39)
[2021-10-17] MEDS: atorvastatin 20mg tablet PO SCH (08:39)
[2021-10-17] MEDS: lisinopril 10 MG tablet PO SCH (08:39)
[2021-10-17 11:00] VITALS: BP 107/70
[2021-10-17 12:09] LABS: ABG BASE EXCESS 0.3 mmol/L (-2.0-2.0); ABG HCO3 24.4 mmol/L (22.0-26.0); ABG OXYGEN SATURATION 96.3 % (94-97); ABG PCO2 (T) 37.8 mmHg (32.0-45.0); ABG PO2 (T) 82.5 mmHg (75.0-100.0); ALLEN'S TEST POSITIVE; FCOHb 0.7 % (0.0-3.9); FMetHb 0.1 % (0.0-1.5); FO2Hb 95.5 % (94-97); TOTAL HEMOGLOBIN 14.1 G/dl (12.0-16.0)
[2021-10-17] MEDS ORDERED: vancomycin/NS 1 GM ADD-VANTAGE 250 ML IV ONE (14:20)
[2021-10-17 15:00] VITALS: BP 104/52
--- NOTE | 2021-10-17 15:49 | NUR ---
Heparin Teaching: Therapeutic level is reached with a cardicac PTT re-check scheduled for 19:45.
[2021-10-17 18:00] VITALS: BP 119/65
[2021-10-17] MEDS: sod chloride 0.9% 10ml flush syringe IV SCH (20:00)
[2021-10-17] MEDS: K and/or MAG REPLACEMENT MC SCH (20:00)
[2021-10-17] MEDS: temazepam 15mg capsule PO PRN (21:05)
[2021-10-17] MEDS: carVEDilol 3.125mg tablet PO SCH (21:06)
[2021-10-17 22:00] VITALS: BP 100/55
[2021-10-18] VITALS (18 sets, daily range): BP systolic 70–140; BP diastolic 42–77
[2021-10-18] MEDS ORDERED: MESSAGE TO NURSING PO ONE (03:00)
--- NOTE | 2021-10-18 04:43 | NUR ---
paged Dr. Barriga regarding patients critical ptt of >139. heparin drip discontinued for surgery
[2021-10-18] MEDS ORDERED: cefazolin/dext.iso 2gm/50ml 50 ML IV ONE (05:30)
[2021-10-18] MEDS ORDERED: cefazolin/dext.iso 2gm/100ml 100 ML IV ONE (05:30)
[2021-10-18] MEDS ORDERED: vancomycin/NS 1 GM ADD-VANTAGE 250 ML IV ONE (05:30)
[2021-10-18] MEDS ORDERED: gabapentin 400mg capsule PO ONE (05:30)
[2021-10-18] MEDS ORDERED: MALTODEXTRIN/FRUCTOSE 0.68 KCAL/ML LIQUID 296ML BOTTLE PO ONE (05:30)
[2021-10-18] MEDS ORDERED: epiNEPHrine 1 mg/ml inj ONE (05:43)
[2021-10-18] MEDS ORDERED: ceFAZolin 1000mg inj ONE (05:43)
--- NOTE | 2021-10-18 06:38 | NUR ---
Patient in room U 3021. I have received report from Lisbeth CAIN and had the opportunity to ask questions and assume patient care. Patient is resting in room in no acute distress.
[2021-10-18 07:09] LABS: EOSINOPHILS # (AUTO) 0.1 X10'3 (0-0.9); EOSINOPHILS % (AUTO) 2.4 % (0-6); HEMOGLOBIN 13.9 g/dl (12.0-16.0); MONOCYTES # (AUTO) 0.5 X10'3 (0-0.9); MONOCYTES % (AUTO) 8.3 % (2-12); NEUTROPHILS # (AUTO) 3.6 X10'3 (1.8-7.7)
[2021-10-18] MEDS ORDERED: MIDAZolam 1 MG/ML 5ML VIAL ONE (07:10)
[2021-10-18] MEDS ORDERED: SUFENTANIL CITRATE 50 MCG/ML 2ml ampule IV ONE (07:10)
[2021-10-18 07:11] LABS: ALANINE AMINOTRANSFERASE 21 U/L (12-78); ALBUMIN/GLOBULIN RATIO 0.9 (1.1-1.5); ALKALINE PHOSPHATASE 104 IU/L (46-116); ANION GAP 10 (8-16); ASPARTATE AMINO TRANSFERASE 21 U/L (10-37); BASOPHILS % (AUTO) 0.3 % (0-1); BILIRUBIN,TOTAL 0.3 MG/DL (0.1-1.0); BLOOD UREA NITROGEN 21 MG/DL (7-18); BUN/CREATININE RATIO 26.3 (6.6-38.0); CALCIUM 8.4 MG/DL (8.5-10.1); CHLORIDE 106 MMOL/L (99-107); GLUCOSE 196 MG/DL (70-104); HEMATOCRIT 41.4 % (35.0-45.0); LYMPHOCYTES # (AUTO) 1.6 X10'3 (1.1-4.8); LYMPHOCYTES % (AUTO) 27.9 % (21-51); MAGNESIUM 1.7 MG/DL (1.5-2.4); MEAN CORPUSCULAR HEMOGLOBIN 30.8 PG (27.0-31.0); MEAN CORPUSCULAR HGB CONC 33.4 g/dL (33.0-36.5); MEAN CORPUSCULAR VOLUME 92.2 FL (78-98); MEAN PLATELET VOLUME 8.6 FL (7.4-10.4); NEUTROPHILS % (AUTO) 61.1 % (42-75); PHOSPHORUS 3.7 MG/DL (2.3-4.5); PLATELET COUNT 242 X10'3 (140-440); POTASSIUM 3.2 MMOL/L (3.5-5.1); RED BLOOD COUNT 4.49 X10'6 (4.20-5.60); RED CELL DISTRIBUTION WIDTH 13.1 % (11.5-14.5); SODIUM 144 MMOL/L (135-145); TOTAL CARBON DIOXIDE 28.2 MMOL/L (24-32); TOTAL PROTEIN 6.5 G/DL (6.4-8.2); WHITE BLOOD COUNT 5.9 X10'3 (4.5-11.0); eGFR 72 ML/MIN
[2021-10-18] MEDS ORDERED: rocuronium 10mg/ml inj IV ONE ×3 (07:13→07:36)
[2021-10-18] MEDS ORDERED: propofol inj 20 ML IV ONE (07:13)
[2021-10-18] MEDS: mupirocin 2% nasal ointment 1gm UD NS SCH ×2 (07:25→19:45)
[2021-10-18] MEDS ORDERED: nitroGLYCERIN in D5W 50mg/250ml (Tridil) infusion IV ONE (07:36)
[2021-10-18] MEDS ORDERED: protamine sulf. 10mg/ml inj. IV ONE (07:36)
[2021-10-18] MEDS ORDERED: niCARDipine in NS 40mg/200ml (0.2mg/ml) IVPB IV ONE (07:36)
[2021-10-18] MEDS ORDERED: sevoflurane 250ml liquid IH ONE (07:36)
--- NOTE | 2021-10-18 07:47 | NUR ---
patient to cvor at 0730
[2021-10-18] MEDS: atorvastatin 20mg tablet PO SCH (08:00)
[2021-10-18] MEDS ORDERED: albumin (human) 25% 100 ML IV solution IV ONE (08:00)
[2021-10-18] MEDS: K and/or MAG REPLACEMENT MC SCH (08:00)
[2021-10-18] MEDS ORDERED: calcium chloride 100 MG/1 ML inj IV ONE (08:00)
[2021-10-18] MEDS ORDERED: NORepinephrine 1 mg/ml inj IV ONE (08:00)
[2021-10-18] MEDS: lisinopril 5mg tablet PO SCH (08:00)
[2021-10-18] MEDS ORDERED: heparin 10,000 units/1 ML INJ ONE ×2 (08:00)
[2021-10-18] MEDS ORDERED: papaverine 30 mg/ml 2ml inj. ONE (08:00)
[2021-10-18] MEDS ORDERED: aminocaproic acid 250 MG/1 ML inj. ONE (08:00)
[2021-10-18] MEDS ORDERED: LIDOcaine 2% (20 mg/ml) 5ml cardiac syringe ONE (08:00)
[2021-10-18] MEDS ORDERED: sodium bicarbonate (8.4%) 1 mEq/ml syringe ONE (08:00)
[2021-10-18] MEDS ORDERED: heparin 1,000 units/ml 10ml inj ONE (08:00)
[2021-10-18] MEDS: docusate sod 100mg capsule PO SCH ×2 (08:00→19:44)
[2021-10-18] MEDS: carVEDilol 3.125mg tablet PO SCH (08:00)
[2021-10-18] MEDS: sod chloride 0.9% 10ml flush syringe IV SCH ×2 (08:00→19:44)
[2021-10-18] MEDS ORDERED: MAGNESIUM SULFATE 4 MEQ/ML (5gm/10ml) injection ONE (08:00)
[2021-10-18] MEDS: aspirin 81mg tab.chew PO SCH (08:30)
[2021-10-18 08:31] LABS: ABG BASE EXCESS 2.2 mmol/L (-2.0-2.0); ABG HCO3 24.1 mmol/L (22.0-26.0); ABG OXYGEN SATURATION 99.4 % (94-97); ABG PCO2 29.5 mmHg (32.0-45.0); ABG PO2 227.3 mmHg (75.0-100.0); CL (ABG) 107 mmol/L (98-110); FCOHb 0.2 % (0.0-3.9); FMetHb 0.3 % (0.0-1.5); FO2Hb 98.9 % (94-97); GLUCOSE (ABG) 67 mg/dl (70-105); IONIZED CA (ABG) 1.09 mmol/L (1.10-1.43); K (ABG) 3.3 mmol/L (3.5-5.0); TOTAL HEMOGLOBIN 12.7 G/dl (12.0-16.0)
[2021-10-18] MEDS ORDERED: papaverine 30 mg/ml 2ml inj. IA ONE (08:50)
[2021-10-18] MEDS ORDERED: heparin 10,000 units/1 ML INJ IR ONE (08:51)
[2021-10-18 09:16] LABS: ABG BASE EXCESS -1.2 mmol/L (-2.0-2.0); ABG HCO3 22.1 mmol/L (22.0-26.0); ABG OXYGEN SATURATION 99.5 % (94-97); ABG PCO2 31.5 mmHg (32.0-45.0); ABG PO2 387.3 mmHg (75.0-100.0); CL (ABG) 105 mmol/L (98-110); FMetHb 0.3 % (0.0-1.5); FO2Hb 99.2 % (94-97); GLUCOSE (ABG) 96 mg/dl (70-105); IONIZED CA (ABG) 0.99 mmol/L (1.10-1.43); K (ABG) 3.3 mmol/L (3.5-5.0); TOTAL HEMOGLOBIN 8.8 G/dl (12.0-16.0)
[2021-10-18 09:55] LABS: ABG BASE EXCESS VENOUS -0.2 mmol/L (-2.0 - 2.0); ABG HCO3 VENOUS 23.5 mmol/L (21.0-28.0); ABG PCO2 VENOUS 34.4 mmHg (38.0-51.0); ABG PO2 VENOUS 53.1 mmHg (25.0-35.0); CL (ABG) 106 mmol/L (98-110); FCOHb VENOUS 0.6 % (0.0- 3.9); FHHb VENOUS 10.2 %; FMetHb VENOUS 0.3 % (0.0 - 0.5); FO2Hb VENOUS 88.9 %; GLUCOSE (ABG) 129 mg/dl (70-105); IONIZED CA (ABG) 0.93 mmol/L (1.10-1.43); K (ABG) 3.5 mmol/L (3.5-5.0); TOTAL HEMOGLOBIN 8.9 G/dl (12.0-16.0)
[2021-10-18 10:30] LABS: ABG HCO3 25.5 mmol/L (22.0-26.0); ABG OXYGEN SATURATION 99.6 % (94-97); ABG PCO2 30.7 mmHg (32.0-45.0); ABG PO2 408.8 mmHg (75.0-100.0); CL (ABG) 105 mmol/L (98-110); FCOHb 0.8 % (0.0-3.9); FMetHb 0.2 % (0.0-1.5); FO2Hb 98.6 % (94-97); GLUCOSE (ABG) 125 mg/dl (70-105); IONIZED CA (ABG) 1.42 mmol/L (1.10-1.43); K (ABG) 3.2 mmol/L (3.5-5.0); TOTAL HEMOGLOBIN 8.2 G/dl (12.0-16.0)
[2021-10-18 10:43] LABS: ABG BASE EXCESS VENOUS 2.7 mmol/L (-2.0 - 2.0); ABG HCO3 VENOUS 26.2 mmol/L (21.0-28.0); ABG PCO2 VENOUS 35.6 mmHg (38.0-51.0); ABG PO2 VENOUS 37.9 mmHg (25.0-35.0); CL (ABG) 106 mmol/L (98-110); FCOHb VENOUS 1.2 % (0.0- 3.9); FHHb VENOUS 22.7 %; FMetHb VENOUS 0.4 % (0.0 - 0.5); FO2Hb VENOUS 75.7 %; GLUCOSE (ABG) 125 mg/dl (70-105); IONIZED CA (ABG) 1.18 mmol/L (1.10-1.43); K (ABG) 3.2 mmol/L (3.5-5.0); TOTAL HEMOGLOBIN 8.4 G/dl (12.0-16.0)
[2021-10-18] MEDS ORDERED: niCARDipine-NS 40mg/200ml IVPB 200 ML IV PRN (11:00)
[2021-10-18] MEDS ORDERED: sodium phosphate inj. 30 MMOL in dextrose 5%-water 250 ML IV PRN (11:00)
[2021-10-18] MEDS ORDERED: magnesium citrate 296ml oral solution PO PRN (11:00)
[2021-10-18] MEDS ORDERED: magnesium 4gm in 100ml NS 100 ML IV PRN (11:00)
[2021-10-18] MEDS ORDERED: nitroGLYCERIN-Tridil 50MG/D5W 250 ML IV SCH (11:00)
[2021-10-18] MEDS ORDERED: HYDROcodone/acetaminophen 10/325mg tab PO PRN ×2 (11:00)
[2021-10-18] MEDS ORDERED: dextrose 50%-water 50ml dispensing syringe IV PRN (11:00)
[2021-10-18] MEDS ORDERED: Neutra Phos packet PO PRN (11:00)
[2021-10-18] MEDS ORDERED: metoclopramide 5 mg/ml inj IV PRN (11:00)
[2021-10-18] MEDS ORDERED: magnesium hydroxide 30ml (MOM) UD suspension PO PRN (11:00)
[2021-10-18] MEDS ORDERED: acetaminophen 325mg tablet PO PRN ×2 (11:00)
[2021-10-18] MEDS ORDERED: Insulin Reg/NS 100units/100mL 100 ML IV SCH (11:00)
[2021-10-18] MEDS ORDERED: insulin glargine (Lantus) pen - multi-dose SQ PRN (11:00)
[2021-10-18] MEDS ORDERED: potassium Cl 20 mEq SR tablet PO PRN (11:00)
[2021-10-18] MEDS ORDERED: morphine 2 MG/ML inj. syringe IV PRN (11:00)
[2021-10-18] MEDS ORDERED: mineral oil 133ml enema RC PRN (11:00)
[2021-10-18] MEDS ORDERED: bisacodyl 10mg suppository rectal RC PRN (11:00)
[2021-10-18] MEDS ORDERED: sodium chloride 0.45% 1,000 ML IV SCH (11:00)
[2021-10-18] MEDS ORDERED: sodium phosphate inj. 15 MMOL in dextrose 5%-water 250 ML IV PRN (11:00)
[2021-10-18] MEDS ORDERED: potassium CL 10mEq/100ml bag 100 ML IV PRN (11:00)
[2021-10-18] MEDS ORDERED: sugammadex 200mg/2ml injection IV ONE (11:48)
[2021-10-18 11:52] LABS: ABG BASE EXCESS 2.6 mmol/L (-2.0-2.0); ABG HCO3 25.2 mmol/L (22.0-26.0); ABG OXYGEN SATURATION 95.9 % (94-97); ABG PCO2 (T) 32.1 mmHg (32.0-45.0); ABG PO2 (T) 76.7 mmHg (75.0-100.0); FCOHb 0.3 % (0.0-3.9); FMetHb 0.5 % (0.0-1.5); FO2Hb 95.1 % (94-97); PEEP 5 cm H2O; RESPIRATORY RATE 12 b/min; TIDAL VOLUME 450 mL
[2021-10-18 11:59] LABS: BASOPHILS % (AUTO) 0.3 % (0-1); EOSINOPHILS # (AUTO) 0.1 X10'3 (0-0.9); EOSINOPHILS % (AUTO) 0.8 % (0-6); HEMOGLOBIN 9.8 g/dl (12.0-16.0); LYMPHOCYTES # (AUTO) 1.7 X10'3 (1.1-4.8); LYMPHOCYTES % (AUTO) 11.5 % (21-51); MEAN CORPUSCULAR HEMOGLOBIN 30.6 PG (27.0-31.0); MEAN CORPUSCULAR HGB CONC 33.9 g/dL (33.0-36.5); MEAN CORPUSCULAR VOLUME 90.4 FL (78-98); MEAN PLATELET VOLUME 7.8 FL (7.4-10.4); MONOCYTES # (AUTO) 0.7 X10'3 (0-0.9); MONOCYTES % (AUTO) 4.9 % (2-12); NEUTROPHILS # (AUTO) 11.9 X10'3 (1.8-7.7); NEUTROPHILS % (AUTO) 82.5 % (42-75); PLATELET COUNT 166 X10'3 (140-440); RED BLOOD COUNT 3.21 X10'6 (4.20-5.60); RED CELL DISTRIBUTION WIDTH 12.6 % (11.5-14.5); WHITE BLOOD COUNT 14.4 X10'3 (4.5-11.0)
[2021-10-18 12:10] LABS: ALANINE AMINOTRANSFERASE 19 U/L (12-78); ALBUMIN 3.1 G/DL (3.4-5.0); ALBUMIN/GLOBULIN RATIO 1.6 (1.1-1.5); ALKALINE PHOSPHATASE 62 IU/L (46-116); ANION GAP 10 (8-16); ASPARTATE AMINO TRANSFERASE 36 U/L (10-37); BILIRUBIN,TOTAL 0.6 MG/DL (0.1-1.0); BLOOD UREA NITROGEN 14 MG/DL (7-18); BUN/CREATININE RATIO 29.2 (6.6-38.0); CALCIUM 7.5 MG/DL (8.5-10.1); CHLORIDE 109 MMOL/L (99-107); CREATININE 0.48 MG/DL (0.40-0.90); GLUCOSE 176 MG/DL (70-104); MAGNESIUM 2.2 MG/DL (1.5-2.4); PHOSPHORUS 2.3 MG/DL (2.3-4.5); POTASSIUM 3.2 MMOL/L (3.5-5.1); SODIUM 145 MMOL/L (135-145); TOTAL CARBON DIOXIDE 25.6 MMOL/L (24-32); eGFR > 90 ML/MIN
[2021-10-18] MEDS: morphine 4 MG/ML inj SYRINge IV PRN ×3 (12:16→14:32)
[2021-10-18] MEDS: albumin (Human) 5% 250ml 250 ML IV PRN ×4 (12:17→20:32)
[2021-10-18] MEDS: Insulin Reg/NS 100units/100mL 100 ML IV SCH (12:19)
[2021-10-18 12:35] LABS: APTT 28 SECONDS (22-32)
[2021-10-18] MEDS: magnesium 2GM in 50ml NS 50 ML IV PRN (12:40)
[2021-10-18] MEDS: potassium Cl 20mEq/100mL bag 100 ML IV PRN ×4 (12:48→15:38)
[2021-10-18] MEDS: ketorolac trometh. 30mg/ml inj. IV SCH ×2 (12:54→19:45)
[2021-10-18] MEDS ORDERED: acetaminophen 1,000mg/100ml IV 100 ML IV ONE (13:00)
[2021-10-18] MEDS ORDERED: ketorolac trometh. 30mg/ml inj. IM SCH (13:00)
[2021-10-18] MEDS: gabapentin 300mg capsule PO SCH ×2 (13:15→21:36)
--- NOTE | 2021-10-18 13:47 | NUR ---
Pt. to 2016 from OR accompanied by OR crew. Pt. awake. Extubated at 1200 per anesthesia. Pt. c/o pain. Medicated with Morphine per ETL SOFTWARE ENGINEER (4 mg). Pt. c/o sever pain (left side). Medicated with another 4mg MS. RN called Dr. Beltran at 1240 to report uncontrolled pain. Order for Toradol received and given to pt. Pt. c/o severe pain (left side). Dr. Chavez at bedside at 1300 and ordered IV Tylenol which was administered. Pt. c/o sever pain still. Medicated with another dose of MS when it became due. Gabapentin given as well. Pt. still c/o consistent left side pain. Temp 35.9 Maurilio aguirre placed on pt. K, Mg and Phos all low. Being replaced now.
--- NOTE | 2021-10-18 14:03 | NUR ---
Call to Dr. Beltran re. pt. uncontrolled pain/anxiety/tenseness. He sated he would come talk to pt. No orders given.
[2021-10-18] MEDS ORDERED: ketorolac trometh. 30mg/ml inj. IV ONE (14:55)
[2021-10-18] MEDS ORDERED: PCA WASTE DOCUMENTATION MC PRN (15:00)
[2021-10-18] MEDS ORDERED: naloxone 0.4 mg/ml inj IV PRN (15:00)
--- NOTE | 2021-10-18 15:23 | NUR ---
Dr. Beltran in. Dilaudid CADD ordered for pt. Additional dose of Toradol ordered by Dr. Beltran and administered by RN. Art. line dampened. Dr. Beltran aware. 3rd dose of Albumin infusing now. Automatic BP cuff [id number] 93/58 (66).
[2021-10-18] MEDS: HYDROmorph/NS 0.2 mg/ml PCA 100 ML IV SCH ×5 (15:54→23:00)
[2021-10-18 17:49] LABS: BASOPHILS % (AUTO) 0.1 % (0-1); EOSINOPHILS % (AUTO) 0 % (0-6); LYMPHOCYTES # (AUTO) 0.4 X10'3 (1.1-4.8); LYMPHOCYTES % (AUTO) 3.9 % (21-51); MEAN CORPUSCULAR HEMOGLOBIN 30.5 PG (27.0-31.0); MEAN CORPUSCULAR HGB CONC 33.3 g/dL (33.0-36.5); MEAN CORPUSCULAR VOLUME 91.6 FL (78-98); MEAN PLATELET VOLUME 7.9 FL (7.4-10.4); MONOCYTES # (AUTO) 0.8 X10'3 (0-0.9); MONOCYTES % (AUTO) 7.2 % (2-12); NEUTROPHILS # (AUTO) 10.2 X10'3 (1.8-7.7); NEUTROPHILS % (AUTO) 88.8 % (42-75); PLATELET COUNT 146 X10'3 (140-440); RED BLOOD COUNT 2.62 X10'6 (4.20-5.60); RED CELL DISTRIBUTION WIDTH 12.7 % (11.5-14.5); WHITE BLOOD COUNT 11.5 X10'3 (4.5-11.0)
[2021-10-18 17:51] LABS: ALBUMIN 3.7 G/DL (3.4-5.0); ANION GAP 7 (8-16); BLOOD UREA NITROGEN 12 MG/DL (7-18); CALCIUM 6.4 MG/DL (8.5-10.1); CHLORIDE 111 MMOL/L (99-107); GLUCOSE 148 MG/DL (70-104); MAGNESIUM 2.5 MG/DL (1.5-2.4); PHOSPHORUS 3.7 MG/DL (2.3-4.5); POTASSIUM 4.6 MMOL/L (3.5-5.1); SODIUM 146 MMOL/L (135-145); TOTAL CARBON DIOXIDE 27.7 MMOL/L (24-32); eGFR > 90 ML/MIN
--- NOTE | 2021-10-18 17:52 | NUR ---
Pain level is 7/10 per pt. Pt. appears more relaxed, able to rest now. VSS. William (and pt's brother) visited bedside a few times today. William was provided with our unit's direct number and was encouraged to call to check on pt. anytime.
[2021-10-18] MEDS: ondansetron/PF 4mg/2ml inj IV PRN (18:04)
--- NOTE | 2021-10-18 18:06 | NUR ---
Problems reprioritized. Patient report given, questions answered & plan of care reviewed with Mac (Halima RN) Les RN .
[2021-10-18] MEDS: sennosides/docusate sodium tablet PO SCH (19:44)
[2021-10-18] MEDS: vancomycin/NS 1 GM ADD-VANTAGE 250 ML IV SCH (19:51)
[2021-10-18] MEDS ORDERED: mupirocin 2% ointment 22GM NS SCH (20:00)
--- NOTE | 2021-10-18 20:20 | NUR ---
RN Note -MD Communication Called Dr. Beltran regarding hypotension. Received order to give one albumin.
[2021-10-18] MEDS: atorvastatin 10mg tablet PO SCH (21:36)
[2021-10-19] VITALS (24 sets, daily range): BP systolic 72–122; BP diastolic 41–67
[2021-10-19] MEDS: HYDROmorph/NS 0.2 mg/ml PCA 100 ML IV SCH ×8 (01:00→15:00)
[2021-10-19] MEDS: ketorolac trometh. 30mg/ml inj. IV SCH ×4 (02:42→20:53)
[2021-10-19 03:30] LABS: BASOPHILS % (AUTO) 0.2 % (0-1); EOSINOPHILS % (AUTO) 0.1 % (0-6); HEMATOCRIT 23.1 % (35.0-45.0); HEMOGLOBIN 7.7 g/dl (12.0-16.0); LYMPHOCYTES # (AUTO) 1.2 X10'3 (1.1-4.8); LYMPHOCYTES % (AUTO) 11.7 % (21-51); MEAN CORPUSCULAR HEMOGLOBIN 31.1 PG (27.0-31.0); MEAN CORPUSCULAR HGB CONC 33.4 g/dL (33.0-36.5); MEAN CORPUSCULAR VOLUME 93.1 FL (78-98); MEAN PLATELET VOLUME 8.1 FL (7.4-10.4); MONOCYTES # (AUTO) 1.1 X10'3 (0-0.9); MONOCYTES % (AUTO) 10.7 % (2-12); NEUTROPHILS # (AUTO) 7.8 X10'3 (1.8-7.7); NEUTROPHILS % (AUTO) 77.3 % (42-75); PLATELET COUNT 160 X10'3 (140-440); RED BLOOD COUNT 2.48 X10'6 (4.20-5.60); RED CELL DISTRIBUTION WIDTH 12.9 % (11.5-14.5); WHITE BLOOD COUNT 10.1 X10'3 (4.5-11.0)
[2021-10-19 03:47] LABS: ALANINE AMINOTRANSFERASE 19 U/L (12-78); ALBUMIN 3.6 G/DL (3.4-5.0); ALKALINE PHOSPHATASE 52 IU/L (46-116); ANION GAP 8 (8-16); ASPARTATE AMINO TRANSFERASE 27 U/L (10-37); BILIRUBIN,TOTAL 0.5 MG/DL (0.1-1.0); BLOOD UREA NITROGEN 15 MG/DL (7-18); BUN/CREATININE RATIO 26.8 (6.6-38.0); CALCIUM 6.7 MG/DL (8.5-10.1); CHLORIDE 109 MMOL/L (99-107); CREATININE 0.56 MG/DL (0.40-0.90); GLUCOSE 139 MG/DL (70-104); MAGNESIUM 2.3 MG/DL (1.5-2.4); PHOSPHORUS 3.2 MG/DL (2.3-4.5); POTASSIUM 4.1 MMOL/L (3.5-5.1); SODIUM 142 MMOL/L (135-145); TOTAL CARBON DIOXIDE 25.5 MMOL/L (24-32); TOTAL PROTEIN 5.4 G/DL (6.4-8.2); eGFR > 90 ML/MIN
[2021-10-19] MEDS: potassium Cl 20mEq/100mL bag 100 ML IV PRN ×2 (05:11→06:37)
[2021-10-19] MEDS: magnesium 2GM in 50ml NS 50 ML IV PRN (05:11)
[2021-10-19] MEDS ORDERED: NORepinephrine 8mg/ 250ml NS 250 ML IV PRN (06:20)
[2021-10-19] MEDS: metoprolol tartrate 12.5mg (1/2 tablet) PO SCH ×2 (08:00→20:00)
[2021-10-19] MEDS: sod chloride 0.9% 10ml flush syringe IV SCH ×2 (08:00→20:54)
[2021-10-19] MEDS: lisinopril 5mg tablet PO SCH (08:00)
[2021-10-19 08:22] LABS: ACT @ 1.70 U 254 SEC (193-297); ACT @ 2.84 U 353 SEC (260-420); BASELINE ACT 134 SEC (101-148); PATIENT WEIGHT 71.0k KG
[2021-10-19] MEDS: aspirin 325mg tablet, delayed-release (Ecotrin) PO SCH (08:30)
[2021-10-19] MEDS: vancomycin/NS 1 GM ADD-VANTAGE 250 ML IV SCH ×2 (08:30→20:54)
[2021-10-19] MEDS: gabapentin 300mg capsule PO SCH ×3 (08:30→20:53)
[2021-10-19] MEDS: sennosides/docusate sodium tablet PO SCH ×2 (08:30→20:52)
[2021-10-19] MEDS: docusate sod 100mg capsule PO SCH ×2 (08:31→20:52)
[2021-10-19] MEDS: acetaminophen w/codeine (30MG) #3 tablet PO PRN ×3 (10:38→18:37)
--- NOTE | 2021-10-19 10:41 | NUR ---
Noted pt s/p CABGx5 post-op day 1 per EMR. Pt would benefit from written/verbal CABG/HH diet eds once more appropriate prior to discharge. Addendum: 10/19/21 at [address] Amended: Links added.
[2021-10-19] MEDS: Insulin Reg/NS 100units/100mL 100 ML IV SCH (14:50)
[2021-10-19] MEDS: atorvastatin 10mg tablet PO SCH (20:53)
[2021-10-20] VITALS (20 sets, daily range): BP systolic 94–166; BP diastolic 52–131
[2021-10-20] MEDS: acetaminophen w/codeine (30MG) #3 tablet PO PRN ×4 (00:38→23:15)
[2021-10-20] MEDS: ketorolac trometh. 30mg/ml inj. IV SCH ×2 (03:21→07:50)
[2021-10-20 03:23] LABS: BASOPHILS % (AUTO) 0.3 % (0-1); EOSINOPHILS # (AUTO) 0.1 X10'3 (0-0.9); EOSINOPHILS % (AUTO) 1.3 % (0-6); HEMATOCRIT 22.4 % (35.0-45.0); HEMOGLOBIN 7.5 g/dl (12.0-16.0); LYMPHOCYTES # (AUTO) 1.5 X10'3 (1.1-4.8); LYMPHOCYTES % (AUTO) 15.3 % (21-51); MEAN CORPUSCULAR HEMOGLOBIN 31.2 PG (27.0-31.0); MEAN CORPUSCULAR HGB CONC 33.6 g/dL (33.0-36.5); MEAN CORPUSCULAR VOLUME 92.9 FL (78-98); MEAN PLATELET VOLUME 8.4 FL (7.4-10.4); MONOCYTES # (AUTO) 1.1 X10'3 (0-0.9); MONOCYTES % (AUTO) 11.8 % (2-12); NEUTROPHILS # (AUTO) 6.8 X10'3 (1.8-7.7); NEUTROPHILS % (AUTO) 71.3 % (42-75); PLATELET COUNT 135 X10'3 (140-440); RED BLOOD COUNT 2.41 X10'6 (4.20-5.60); RED CELL DISTRIBUTION WIDTH 13.3 % (11.5-14.5); WHITE BLOOD COUNT 9.5 X10'3 (4.5-11.0)
[2021-10-20 03:33] LABS: ALANINE AMINOTRANSFERASE 50 U/L (12-78); ALBUMIN/GLOBULIN RATIO 1.4 (1.1-1.5); ALKALINE PHOSPHATASE 72 IU/L (46-116); ANION GAP 4 (8-16); ASPARTATE AMINO TRANSFERASE 43 U/L (10-37); BILIRUBIN,TOTAL 0.4 MG/DL (0.1-1.0); BLOOD UREA NITROGEN 19 MG/DL (7-18); BUN/CREATININE RATIO 27.1 (6.6-38.0); CALCIUM 7.6 MG/DL (8.5-10.1); CHLORIDE 109 MMOL/L (99-107); GLUCOSE 138 MG/DL (70-104); MAGNESIUM 2.4 MG/DL (1.5-2.4); PHOSPHORUS 2.3 MG/DL (2.3-4.5); POTASSIUM 4.5 MMOL/L (3.5-5.1); SODIUM 138 MMOL/L (135-145); TOTAL CARBON DIOXIDE 25.3 MMOL/L (24-32); TOTAL PROTEIN 5.2 G/DL (6.4-8.2); eGFR 83 ML/MIN
--- NOTE | 2021-10-20 06:30 | NUR ---
Patient in room CICU 2016. I have received report from Deidra CAIN and had the opportunity to ask questions and assume patient care.
[2021-10-20] MEDS: sennosides/docusate sodium tablet PO SCH ×2 (07:48→19:59)
[2021-10-20] MEDS: docusate sod 100mg capsule PO SCH ×2 (07:48→19:59)
[2021-10-20] MEDS: aspirin 325mg tablet, delayed-release (Ecotrin) PO SCH (07:49)
[2021-10-20] MEDS: metoprolol tartrate 12.5mg (1/2 tablet) PO SCH ×2 (07:49→19:59)
[2021-10-20] MEDS: gabapentin 300mg capsule PO SCH (07:49)
[2021-10-20] MEDS: lisinopril 5mg tablet PO SCH (07:49)
[2021-10-20] MEDS: pantoprazole 40mg Tablet.DR PO SCH (07:49)
[2021-10-20] MEDS: sod chloride 0.9% 10ml flush syringe IV SCH ×2 (07:50→20:03)
--- NOTE | 2021-10-20 08:30 | NUR ---
Dr. Beltran and Isidoro powell by to round on patient, reviewed meds, and labs. Isidoro Powell D/C the chest tube and pacer wires. Dr. Beltran ordered to have the R IJ D/C and can D/C gutierrez 5hrs post 40mg of lasix
--- NOTE | 2021-10-20 09:00 | NUR ---
R IJ d/c per MD order canula intact no bleeding
[2021-10-20] MEDS: clopidogrel 75mg tablet PO SCH (10:16)
[2021-10-20] MEDS: furosemide 40mg/4ml inj IV SCH (10:16)
--- NOTE | 2021-10-20 10:44 | NUR ---
CABG Consult: Pt s/p CABGx5 post-op day 2 per EMR. Pt seen by RD for written/verbal high protein/HH diet eds w/ RD contact information provided. Pt is agreeable to strawberry-banana Gulshan [place] for wound healing; PA notified. RD encouraged pt to contact dietitian's office if further questions/concerns. Addendum: 10/20/21 at [address] Amended: Links added. Addendum: 10/20/21 at [address] GERONIMO DOMINGUEZ
--- NOTE | 2021-10-20 16:33 | NUR ---
called PCU to give report to heladio, stated that they will have her call me back
[2021-10-20] MEDS: JUVEN Smoothie Arginine/Glut./Ca2+Bmb (Juven 19.3pkt) 240ml cup PO SCH (17:30)
--- NOTE | 2021-10-20 17:30 | NUR ---
brenda D/c per order
--- NOTE | 2021-10-20 18:13 | NUR ---
Problems reprioritized. Patient report given, questions answered & plan of care reviewed with Prachi CAIN on pcu.
[2021-10-20] MEDS: magnesium Cl slow-release 64mg tablet PO SCH (19:59)
[2021-10-20] MEDS: potassium Cl 20 mEq SR tablet PO SCH (20:00)
[2021-10-20] MEDS: atorvastatin 10mg tablet PO SCH (20:02)
[2021-10-21 02:00] VITALS: BP 124/78
[2021-10-21 06:00] VITALS: BP 155/89
[2021-10-21 07:18] LABS: BASOPHILS % (AUTO) 0.5 % (0-1); EOSINOPHILS # (AUTO) 0.2 X10'3 (0-0.9); EOSINOPHILS % (AUTO) 1.9 % (0-6); HEMATOCRIT 24.4 % (35.0-45.0); HEMOGLOBIN 8.1 g/dl (12.0-16.0); LYMPHOCYTES # (AUTO) 1.5 X10'3 (1.1-4.8); LYMPHOCYTES % (AUTO) 15.6 % (21-51); MEAN CORPUSCULAR HEMOGLOBIN 31.5 PG (27.0-31.0); MEAN CORPUSCULAR HGB CONC 33.3 g/dL (33.0-36.5); MEAN CORPUSCULAR VOLUME 94.5 FL (78-98); MEAN PLATELET VOLUME 8.4 FL (7.4-10.4); MONOCYTES # (AUTO) 1.1 X10'3 (0-0.9); MONOCYTES % (AUTO) 11.9 % (2-12); NEUTROPHILS # (AUTO) 6.8 X10'3 (1.8-7.7); NEUTROPHILS % (AUTO) 70.1 % (42-75); PLATELET COUNT 174 X10'3 (140-440); RED BLOOD COUNT 2.58 X10'6 (4.20-5.60); RED CELL DISTRIBUTION WIDTH 13.4 % (11.5-14.5); WHITE BLOOD COUNT 9.6 X10'3 (4.5-11.0)
[2021-10-21] MEDS: JUVEN Smoothie Arginine/Glut./Ca2+Bmb (Juven 19.3pkt) 240ml cup PO SCH (07:30)
[2021-10-21 07:36] LABS: ALBUMIN 2.8 G/DL (3.4-5.0); ANION GAP 11 (8-16); BLOOD UREA NITROGEN 15 MG/DL (7-18); BUN/CREATININE RATIO 25.9 (6.6-38.0); CALCIUM 8.1 MG/DL (8.5-10.1); CHLORIDE 107 MMOL/L (99-107); CREATININE 0.58 MG/DL (0.40-0.90); GLUCOSE 125 MG/DL (70-104); POTASSIUM 4.1 MMOL/L (3.5-5.1); SODIUM 141 MMOL/L (135-145); eGFR > 90 ML/MIN
[2021-10-21] MEDS: magnesium Cl slow-release 64mg tablet PO SCH (08:28)
[2021-10-21] MEDS: metoprolol tartrate 12.5mg (1/2 tablet) PO SCH (08:28)
[2021-10-21] MEDS: acetaminophen w/codeine (30MG) #3 tablet PO PRN ×2 (08:29→15:24)
[2021-10-21] MEDS: sennosides/docusate sodium tablet PO SCH (08:29)
[2021-10-21] MEDS: clopidogrel 75mg tablet PO SCH (08:30)
[2021-10-21] MEDS: pantoprazole 40mg Tablet.DR PO SCH (08:30)
[2021-10-21] MEDS: potassium Cl 20 mEq SR tablet PO SCH (08:30)
[2021-10-21] MEDS: furosemide 40mg/4ml inj IV SCH (08:31)
[2021-10-21] MEDS: docusate sod 100mg capsule PO SCH (08:31)
[2021-10-21] MEDS: aspirin 325mg tablet, delayed-release (Ecotrin) PO SCH (08:31)
[2021-10-21] MEDS: sod chloride 0.9% 10ml flush syringe IV SCH (08:38)
[2021-10-21] MEDS: ondansetron/PF 4mg/2ml inj IV PRN (09:34)
[2021-10-21 11:00] VITALS: BP 116/63
[2021-10-21] MEDS ORDERED: ACET-1 PO (11:45)
[2021-10-21] MEDS ORDERED: CLOP75TA34 PO (11:45)
[2021-10-21] MEDS ORDERED: ATOR10TA PO (11:45)
[2021-10-21] MEDS ORDERED: ASPI-1071 PO (11:45)
[2021-10-21] MEDS ORDERED: DOCU100C40 PO (11:45)
[2021-10-21] MEDS ORDERED: LOP12.5T PO (11:45)
--- NOTE | 2021-10-21 14:22 | NUR ---
Initial: Pt admit DX NSTEMI s/p CABGx5 this admit per EMR. Pt PO ~60% avg NCS diet outside day of OR 10/18 w/ Gulshan smoothie started WB today overall partially meeting needs. First BM today per PA note receiving routine senna and colace. Pt had reported low appetite during initial RD visit for education; pt seen by RD today reports appetite improving drank Gulshan smoothie AM. Noted PO 75% dinner last night per EMR. Will continue to monitor for further nutrition intervention needs this admit. Rec: 1. advance to heart healthy diet; encourage PO 2. strawberry-banana Gulshan smoothie BIDBD for wound healing 3. routine bowel regimen 4. weekly wts Addendum: 10/21/21 at [address] Amended: Links added.
--- NOTE | 2021-10-21 16:29 | NUR ---
PT discharged home with current instructions, pt states understanding of CABG instructions as provided by Cardiac PA JOSE ANGEL Madrigal to left wrist discontinued tip intact. Verified discharge medications received by pharmacy. Escorted to vehicle via WC by INSTRUMENT TECHNICIAN.
== END 2021-10-21 16:31 | disposition home or self-care (01) | DRG 236 ==
LOC: EEVIPCON 12:38 → ER 12:38 → PCU 3S 16:18 → CICU 2S 10-18 11:34 → PCU 3S 10-20 18:00
PROVIDERS: ADMIT Family Medicine; ATTEND Family Medicine
PROC: 02100Z9 Bypass Coronary Artery, One Artery from Left Internal Mammary, Open Approach (ICD-10-PCS; 2021-10-18)
PROC: 06BQ4ZZ Excision of Left Saphenous Vein, Percutaneous Endoscopic Approach (ICD-10-PCS; 2021-10-18)
PROC: 5A1221Z Performance of Cardiac Output, Continuous (ICD-10-PCS; 2021-10-18)
PROC: 021309W Bypass Coronary Artery, Four or More Arteries from Aorta with Autologous Venous Tissue, Open Approach (ICD-10-PCS; principal; 2021-10-18 07:36)
DX: I21.4 Non-ST elevation (NSTEMI) myocardial infarction (principal); I10 Essential (primary) hypertension; I25.10 Atherosclerotic heart disease of native coronary artery without angina pectoris; D64.9 Anemia, unspecified; E78.00 Pure hypercholesterolemia, unspecified; E87.70 Fluid overload, unspecified; F41.9 Anxiety disorder, unspecified; I49.3 Ventricular premature depolarization; G43.909 Migraine, unspecified, not intractable, without status migrainosus; E78.5 Hyperlipidemia, unspecified; Z20.822 Contact with and (suspected) exposure to COVID-19; Z63.4 Disappearance and death of family member; I25.2 Old myocardial infarction; Z82.49 Family history of ischemic heart disease and other diseases of the circulatory system; Z79.899 Other long term (current) drug therapy; Z87.442 Personal history of urinary calculi; Z88.0 Allergy status to penicillin; Z90.710 Acquired absence of both cervix and uterus; Z91.041 Radiographic dye allergy status
CPT/HCPCS: 93306; 93312; 93325; 93459; 96374; 96375; 99285; Z7506; Z7508; 36415; 36600; 71045; 71046; 80048; 80053; 80061; 82330; 82435; 82803; 82947; 82948; 83036; 83735; 83880; 84100; 84132; 84295; 84443; 84484; 85018; 85025; 85347; 85379; 85384; 85610; 85730; 86885; 86900; 86901; 86920; 87081; 93005; 93458; 93880; 93970; 94002; 94010; 94667; 94668; 94760; 97116; 97161; 97530; 99152; 99153; A4618; A4620; A5120; A6258; A6446; A6449; A7000; A7048; C1713; C1751; C1769; C1894; G0378; J0131; J0171; J0690; J1170; J1200; J1644; J1815; J1885; J1940; J2060; J2150; J2250; J2270; J2405; J2440; J2704; J2720; J2930; J3010; J3370; J3475; J3480; J3490; J7030; J7040; J7050; J7060; J7120; P9045; P9047; Q9967

== ENCOUNTER 2021-11-23 12:43 | Outpatient (CLI) | payer BC, MEDICARE ==
[~2021-11-23 12:43] MED LIST changes: +ACET-1 PO; +ASPI-1071 PO; +ATOR10TA PO; -CALC500T63 PO; -CHOL10002 PO; +CLOP75TA34 PO; +DOCU100C40 PO; +LOP12.5T PO; -MULT-933 PO; -TOP100T PO; +[UNRECOGNIZED DRUG - CODE] PO
[2021-11-23 13:25] LABS: BASOPHILS # (AUTO) 0.1 X10'3 (0-0.2); BASOPHILS % (AUTO) 1.1 % (0-1); EOSINOPHILS # (AUTO) 0.2 X10'3 (0-0.9); EOSINOPHILS % (AUTO) 2.5 % (0-6); HEMATOCRIT 38.5 % (35.0-45.0); HEMOGLOBIN 12.6 g/dl (12.0-16.0); LYMPHOCYTES # (AUTO) 1.7 X10'3 (1.1-4.8); LYMPHOCYTES % (AUTO) 22.8 % (21-51); MEAN CORPUSCULAR HEMOGLOBIN 29.3 PG (27.0-31.0); MEAN CORPUSCULAR HGB CONC 32.6 g/dL (33.0-36.5); MEAN CORPUSCULAR VOLUME 89.7 FL (78-98); MEAN PLATELET VOLUME 7.4 FL (7.4-10.4); MONOCYTES # (AUTO) 0.6 X10'3 (0-0.9); MONOCYTES % (AUTO) 7.9 % (2-12); NEUTROPHILS % (AUTO) 65.7 % (42-75); PLATELET COUNT 442 X10'3 (140-440); RED BLOOD COUNT 4.29 X10'6 (4.20-5.60); RED CELL DISTRIBUTION WIDTH 14.9 % (11.5-14.5); WHITE BLOOD COUNT 7.6 X10'3 (4.5-11.0)
== END 2021-11-23 23:59 | disposition home or self-care (01) ==
LOC: LAB 12:43
PROVIDERS: ATTEND Family Medicine
DX: D62 Acute posthemorrhagic anemia (principal)
CPT/HCPCS: 36415; 85025

== ENCOUNTER 2022-03-02 07:47 | Outpatient (CLI) | payer BC, MEDICARE ==
[2022-03-02 09:03] LABS: ALANINE AMINOTRANSFERASE 19 U/L (12-78); ALBUMIN 3.7 G/DL (3.4-5.0); ALBUMIN/GLOBULIN RATIO 0.9 (1.1-1.5); ALKALINE PHOSPHATASE 115 IU/L (46-116); ANION GAP 6 (8-16); ASPARTATE AMINO TRANSFERASE 19 U/L (10-37); BILIRUBIN,TOTAL 0.3 MG/DL (0.1-1.0); BLOOD UREA NITROGEN 22 MG/DL (7-18); BUN/CREATININE RATIO 28.9 (6.6-38.0); CALCIUM 9.5 MG/DL (8.5-10.1); CHLORIDE 104 MMOL/L (99-107); CHOL/HDL RATIO 2.2 (0.00-4.99); CHOLESTEROL 172 MG/DL (0-200); CREATININE 0.76 MG/DL (0.40-0.90); GLUCOSE 114 MG/DL (70-104); HDL CHOLESTEROL 79 MG/DL (35-60); LDL CHOLESTEROL 73 MG/DL (50-100); POTASSIUM 3.2 MMOL/L (3.5-5.1); SODIUM 140 MMOL/L (135-145); TOTAL CARBON DIOXIDE 29.6 MMOL/L (24-32); TOTAL PROTEIN 7.8 G/DL (6.4-8.2); TRIGLYCERIDES 64 MG/DL (20-135); eGFR 76 ML/MIN
== END 2022-03-02 23:59 | disposition home or self-care (01) ==
LOC: LAB 07:47
PROVIDERS: ATTEND Internal Medicine Interventional Cardiology
DX: E78.5 Hyperlipidemia, unspecified (principal)
CPT/HCPCS: 36415; 80053; 80061

== ENCOUNTER 2022-03-02 08:07 | Outpatient (CLI) | payer BC, MEDICARE | END 2022-03-02 23:59 | disposition home or self-care (01) | LOC: RAD 08:07 | PROVIDERS: ATTEND Surgery | DX: T81.49XA Infection following a procedure, other surgical site, initial encounter (principal); L03.313 Cellulitis of chest wall; Z98.890 Other specified postprocedural states; Z98.82 Breast implant status | CPT/HCPCS: 71250 ==

== ENCOUNTER 2022-08-26 11:15 | Outpatient (CLI) | payer BC | END 2022-08-26 23:59 | disposition home or self-care (01) | LOC: RAD 11:15 | PROVIDERS: ATTEND Emergency Medicine | DX: M19.032 Primary osteoarthritis, left wrist (principal); M25.532 Pain in left wrist | CPT/HCPCS: 73110 ==

== ENCOUNTER 2023-09-21 10:49 | Outpatient (CLI) | payer BC ==
[2023-09-21 14:07] LABS: APPEARANCE,SYNOVIAL FLUID CLOUDY; COLOR,SYNOVIAL FLUID YELLOW; SYN RBC 2150 /CU MM (0); SYN WBC 39400 /CU MM (0-200)
[2023-09-21 14:32] LABS: LYMPHOCYTES,SYNOVIAL FLUID 9 % (0-75); MONOCYTES,SYNOVIAL FLUID 4 % (0-0); NEUTROPHILS,SYNOVIAL FLUID 87 % (0-25)
[2023-09-21 18:04] LABS: CRYSTAL ID, SYN FLD CA PYROPHOSPHATE; SYNOVIAL FLUID CRYSTALS QT MANY
== END 2023-09-21 23:59 | disposition home or self-care (01) ==
LOC: LAB SPEC 10:49
PROVIDERS: ATTEND Family Medicine
DX: M00.9 Pyogenic arthritis, unspecified (principal)
CPT/HCPCS: 87070; 89051; 89060